=== PATIENT | male | born 1945 | race Caucasian/White ===

== ENCOUNTER 2016-11-08 07:31 | Outpatient (CLI) | payer OTHER ==
[~2016-11-08 07:31] MED LIST: ASPI-1063 PO; CARV25TA55 PO; CAT.1 PO; FURO-150 PO; IPRA4AER INH; LEVO500T20 PO; LIP10 PO; LISI40TA4 PO
[2016-11-08 08:51] LABS: BASOPHILS % (AUTO) 0.3 % (0.0-2.0); EOSINOPHILS # (AUTO) 0.3 K/uL (0.0-0.4); EOSINOPHILS % (AUTO) 3.1 % (0.0-4.0); HEMOGLOBIN 15.4 g/dL (14.0-18.0); LYMPHOCYTES % (AUTO) 22.6 % (20.5-51.5); MEAN CORPUSCULAR HEMOGLOBIN 28 pg (27-31); MEAN CORPUSCULAR HGB CONC 32 % (32-36); MEAN CORPUSCULAR VOLUME 89 fL (79.0-98.0); MONOCYTES # (AUTO) 0.7 K/uL (0.0-1.0); MONOCYTES % (AUTO) 7.4 % (1.7-9.3); NEUTROPHILS # (AUTO) 5.8 K/uL (1.8-7.7); NEUTROPHILS % (AUTO) 66.6 % (40.0-70.0); PLATELET COUNT (AUTO) 244 K/uL (130-430); RED BLOOD CELL COUNT(AUTO) 5.42 MIL/uL (4.2-6.2); WHITE BLOOD COUNT (AUTO) 8.8 K/uL (4.8-10.8)
[2016-11-08 09:07] LABS: ALBUMIN 4.2 g/dL (3.4-4.8); CALCIUM 9.6 mg/dL (8.4-11.0); CREATININE 0.97 mg/dL (0.55-1.30); FREE T4 (FREE THYROXINE) 0.7 ng/dL (0.6-1.6); POTASSIUM 3.8 mmol/L (3.5-5.1); THYROID STIMULATING HORMONE 0.67 uIu/mL (0.34-4.82); TOTAL BILIRUBIN 0.7 mg/dL (0.0-1.0)
[2016-11-09 10:09] LABS: PROSTATE SPECIFIC AG 1.5 ng/mL (0.0-4.0)
[2016-11-09 14:03] LABS: HEMOGLOBIN A1C 5.8 % (4.8-5.6)
== END 2016-11-08 18:52 | disposition home or self-care (01) ==
LOC: SLB 07:31
PROVIDERS: ATTEND Internal Medicine
DX: I10 Essential (primary) hypertension (principal); E78.5 Hyperlipidemia, unspecified; J44.9 Chronic obstructive pulmonary disease, unspecified; E66.9 Obesity, unspecified; E55.9 Vitamin D deficiency, unspecified; I50.9 Heart failure, unspecified; R33.9 Retention of urine, unspecified; R73.9 Hyperglycemia, unspecified
CPT/HCPCS: 36415; 80053; 80061; 82306; 82607; 83036; 83880; 84153; 84439; 84443-TC; 85025

== ENCOUNTER 2017-07-25 08:30 | Outpatient (CLI) | payer OTHER ==
[2017-07-25 09:20] LABS: BASOPHILS % (AUTO) 0.3 % (0.0-2.0); EOSINOPHILS # (AUTO) 0.2 K/uL (0.0-0.4); EOSINOPHILS % (AUTO) 2.1 % (0.0-4.0); HEMATOCRIT 47.3 % (36-54); HEMOGLOBIN 15.4 g/dL (14.0-18.0); LYMPHOCYTES # (AUTO) 2.4 K/uL (1.0-5.5); MEAN CORPUSCULAR HEMOGLOBIN 28 pg (27-31); MEAN CORPUSCULAR HGB CONC 33 % (32-36); MEAN CORPUSCULAR VOLUME 87 fL (79.0-98.0); MONOCYTES # (AUTO) 0.7 K/uL (0.0-1.0); MONOCYTES % (AUTO) 7.5 % (1.7-9.3); NEUTROPHILS # (AUTO) 5.4 K/uL (1.8-7.7); NEUTROPHILS % (AUTO) 63.1 % (40.0-70.0); PLATELET COUNT (AUTO) 262 K/uL (130-430); RED BLOOD CELL COUNT(AUTO) 5.42 MIL/uL (4.2-6.2); WHITE BLOOD COUNT (AUTO) 8.8 K/uL (4.8-10.8)
[2017-07-25 09:45] LABS: ALBUMIN 4.1 g/dL (3.4-4.8); CALCIUM 10.1 mg/dL (8.4-11.0); CREATININE 0.81 mg/dL (0.55-1.30); POTASSIUM 3.9 mmol/L (3.5-5.1); THYROID STIMULATING HORMONE 0.56 uIu/mL (0.34-4.82); TOTAL BILIRUBIN 0.7 mg/dL (0.0-1.0)
== END 2017-07-25 20:17 | disposition home or self-care (01) ==
LOC: SLB 08:30
PROVIDERS: ATTEND Internal Medicine
DX: I10 Essential (primary) hypertension (principal); E50.3 Vitamin A deficiency with corneal ulceration and xerosis; E78.5 Hyperlipidemia, unspecified; J44.9 Chronic obstructive pulmonary disease, unspecified; R73.9 Hyperglycemia, unspecified
CPT/HCPCS: 36415; 80053; 80061; 83036; 84443-TC; 85025

== ENCOUNTER 2018-02-13 08:20 | Outpatient (CLI) | payer OTHER ==
[~2018-02-13 08:20] MED LIST changes: -ASPI-1063 PO; +ASPI-1154 PO
[2018-02-13 08:59] LABS: BASOPHILS % (AUTO) 0.2 % (0.0-2.0); EOSINOPHILS # (AUTO) 0.2 K/uL (0.0-0.4); HEMATOCRIT 46.5 % (36-54); HEMOGLOBIN 15.6 g/dL (14.0-18.0); LYMPHOCYTES # (AUTO) 2.3 K/uL (1.0-5.5); LYMPHOCYTES % (AUTO) 27.7 % (20.5-51.5); MEAN CORPUSCULAR HEMOGLOBIN 30 pg (27-31); MEAN CORPUSCULAR HGB CONC 34 % (32-36); MEAN CORPUSCULAR VOLUME 89 fL (79.0-98.0); MONOCYTES # (AUTO) 0.5 K/uL (0.0-1.0); MONOCYTES % (AUTO) 6.6 % (1.7-9.3); NEUTROPHILS # (AUTO) 5.3 K/uL (1.8-7.7); NEUTROPHILS % (AUTO) 63.5 % (40.0-70.0); PLATELET COUNT (AUTO) 239 K/uL (130-430); RED BLOOD CELL COUNT(AUTO) 5.21 MIL/uL (4.2-6.2); RED CELL DISTRIBUTION WIDTH 13.3 % (9.0-15.0); WHITE BLOOD COUNT (AUTO) 8.3 K/uL (4.8-10.8)
[2018-02-13 09:27] LABS: CALCIUM 9.4 mg/dL (8.4-11.0); CREATININE 0.88 mg/dL (0.55-1.30); POTASSIUM 3.9 mmol/L (3.5-5.1); THYROID STIMULATING HORMONE 0.61 uIu/mL (0.34-4.82); TOTAL BILIRUBIN 0.6 mg/dL (0.0-1.0)
[2018-02-13 11:08] LABS: BILIRUBIN,URINE NEGATIVE (NEGATIVE); BLOOD, URINE NEGATIVE (NEGATIVE); CLARITY/URINE CLEAR (CLEAR); COLOR,URINE YELLOW (YELLOW); GLUCOSE,URINE NEGATIVE (NEGATIVE); KETONES,URINE 1+ (NEGATIVE); LEUKOCYTE ESTERASE ,URINE NEGATIVE (NEGATIVE); NITRITE, URINE NEGATIVE (NEGATIVE); PH,URINE 6.5 (5.0-8.0); PROTEIN URINE NEGATIVE (NEGATIVE); UROBILINOGEN,URINE 0.2 (0.2-1.0)
[2018-02-14 04:11] LABS: HEMOGLOBIN A1C 5.6 % (4.8-5.6)
[2018-02-14 08:07] LABS: PROSTATE SPECIFIC AG 1.9 ng/mL (0.0-4.0)
== END 2018-02-13 21:10 | disposition home or self-care (01) ==
LOC: SLB 08:20
PROVIDERS: ATTEND Internal Medicine
DX: I11.0 Hypertensive heart disease with heart failure (principal); I50.41 Acute combined systolic (congestive) and diastolic (congestive) heart failure; E78.5 Hyperlipidemia, unspecified; J44.9 Chronic obstructive pulmonary disease, unspecified; R73.9 Hyperglycemia, unspecified; Z79.82 Long term (current) use of aspirin; Z79.899 Other long term (current) drug therapy; N40.0 Benign prostatic hyperplasia without lower urinary tract symptoms
CPT/HCPCS: 36415; 80053; 80061; 81003; 82306; 83036; 84443-TC; 85025; G0103

== ENCOUNTER 2018-08-21 08:08 | Outpatient (CLI) | payer OTHER ==
[2018-08-21 09:20] LABS: BASOPHILS % (AUTO) 0.2 % (0.0-2.0); EOSINOPHILS # (AUTO) 0.2 K/uL (0.0-0.4); EOSINOPHILS % (AUTO) 2.6 % (0.0-4.0); HEMATOCRIT 47.8 % (36-54); HEMOGLOBIN 15.7 g/dL (14.0-18.0); MEAN CORPUSCULAR HEMOGLOBIN 29 pg (27-31); MEAN CORPUSCULAR HGB CONC 33 % (32-36); MEAN CORPUSCULAR VOLUME 87 fL (79.0-98.0); MONOCYTES # (AUTO) 0.6 K/uL (0.0-1.0); MONOCYTES % (AUTO) 7.4 % (1.7-9.3); NEUTROPHILS # (AUTO) 5.2 K/uL (1.8-7.7); NEUTROPHILS % (AUTO) 64.8 % (40.0-70.0); PLATELET COUNT (AUTO) 239 K/uL (130-430); RED BLOOD CELL COUNT(AUTO) 5.48 MIL/uL (4.2-6.2); RED CELL DISTRIBUTION WIDTH 12.8 % (9.0-15.0); WHITE BLOOD COUNT (AUTO) 8.1 K/uL (4.8-10.8)
[2018-08-21 09:39] LABS: ALBUMIN 3.6 g/dL (3.4-4.8); CALCIUM 8.8 mg/dL (8.4-11.0); CREATININE 0.84 mg/dL (0.55-1.30); POTASSIUM 4.1 mmol/L (3.5-5.1); THYROID STIMULATING HORMONE 0.52 uIu/mL (0.34-4.82); TOTAL BILIRUBIN 0.5 mg/dL (0.0-1.0)
[2018-08-21 10:47] LABS: BILIRUBIN,URINE NEGATIVE (NEGATIVE); BLOOD, URINE NEGATIVE (NEGATIVE); COLOR,URINE YELLOW (YELLOW); GLUCOSE,URINE NEGATIVE (NEGATIVE); KETONES,URINE NEGATIVE (NEGATIVE); LEUKOCYTE ESTERASE ,URINE NEGATIVE (NEGATIVE); NITRITE, URINE NEGATIVE (NEGATIVE); PH,URINE 5.5 (5.0-8.0); PROTEIN URINE NEGATIVE (NEGATIVE); UROBILINOGEN,URINE 0.2 (0.2-1.0)
[2018-08-21 10:50] LABS: CLARITY/URINE SLIGHTLY HAZY (CLEAR)
[2018-08-22 07:00] LABS: HEMOGLOBIN A1C 5.5 % (4.8-5.6)
[2018-08-22 14:03] LABS: PROSTATE SPECIFIC AG 1.3 ng/mL (0.0-4.0)
== END 2018-08-21 19:21 | disposition home or self-care (01) ==
LOC: SLB 08:08
PROVIDERS: ATTEND Internal Medicine
DX: Z12.5 Encounter for screening for malignant neoplasm of prostate (principal); I10 Essential (primary) hypertension; R73.9 Hyperglycemia, unspecified; Z79.899 Other long term (current) drug therapy
CPT/HCPCS: 36415; 80053; 80061; 81003; 82306; 82607; 83036; 84443; 85025; G0103; 84153

== ENCOUNTER 2019-04-16 08:25 | Outpatient (CLI) | payer OTHER ==
[~2019-04-16 08:25] MED LIST changes: -ASPI-1154 PO; +ASPI-1457 PO
[2019-04-16 09:15] LABS: ALANINE AMINOTRANSFERASE 23 U/L (12-78); ALBUMIN 3.8 g/dL (3.4-4.8); ANION GAP 9 (5-15); ASPARTATE AMINOTRANSFERASE 19 U/L (10-37); CHLORIDE 103 mmol/L (98-107); CHOLESTEROL 144 mg/dL (<200); CREATININE 0.91 mg/dL (0.55-1.30); GLUCOSE 101 mg/dL (70-99); HDL CHOLESTEROL 41 mg/dL (>45); LDL CHOLESTEROL 79 mg/dL (<100); POTASSIUM 3.9 mmol/L (3.5-5.1); SODIUM SERUM 137 mmol/L (136-145); TOTAL BILIRUBIN 0.6 mg/dL (0.0-1.0); TRIGLYCERIDES 154 mg/dL (30-150); UREA NITROGEN, BLOOD 19 mg/dL (8-21)
[2019-04-16 09:16] LABS: BASOPHILS % (AUTO) 0.4 % (0.0-2.0); EOSINOPHILS # (AUTO) 0.1 K/uL (0.0-0.4); EOSINOPHILS % (AUTO) 1.6 % (0.0-4.0); HEMATOCRIT 44.9 % (36-54); HEMOGLOBIN 15.2 g/dL (14.0-18.0); LYMPHOCYTES # (AUTO) 2.4 K/uL (1.0-5.5); LYMPHOCYTES % (AUTO) 26.4 % (20.5-51.5); MEAN CORPUSCULAR HEMOGLOBIN 30 pg (27-31); MEAN CORPUSCULAR HGB CONC 34 % (32-36); MEAN CORPUSCULAR VOLUME 88 fL (79.0-98.0); MONOCYTES # (AUTO) 0.7 K/uL (0.0-1.0); NEUTROPHILS # (AUTO) 5.8 K/uL (1.8-7.7); NEUTROPHILS % (AUTO) 63.6 % (40.0-70.0); PLATELET COUNT (AUTO) 241 K/uL (130-430); RED BLOOD CELL COUNT(AUTO) 5.08 MIL/uL (4.2-6.2); RED CELL DISTRIBUTION WIDTH 13.9 % (9.0-15.0); WHITE BLOOD COUNT (AUTO) 9.1 K/uL (4.8-10.8)
[2019-04-16 09:24] LABS: CALCIUM 9.4 mg/dL (8.4-11.0)
[2019-04-17 07:14] LABS: PROSTATE SPECIFIC AG 1.7 ng/mL (0.0-4.0)
[2019-04-17 14:50] LABS: HEMOGLOBIN A1C 5.7 % (4.8-5.6)
== END 2019-04-16 21:09 | disposition home or self-care (01) ==
LOC: SLB 08:25
PROVIDERS: ATTEND Internal Medicine
DX: E78.5 Hyperlipidemia, unspecified (principal); I10 Essential (primary) hypertension; R73.9 Hyperglycemia, unspecified; I50.32 Chronic diastolic (congestive) heart failure; N40.0 Benign prostatic hyperplasia without lower urinary tract symptoms
CPT/HCPCS: 36415; 80053; 80061; 83036; 84153; 85025

== ENCOUNTER 2019-10-27 12:16 | Inpatient (IN) | payer OTHER ==
[~2019-10-27] VITALS: Ht 182.9 cm; Wt 122.0 kg
[2019-10-27 12:16] VITALS: BP_SYST 161
--- NOTE | 2019-10-27 12:16 | NUR ---
BROUGHT BACK TO BED #7 AND TRIAGED. REPORT GIVEN TO MICHEAL
--- NOTE | 2019-10-27 12:18 | NUR ---
Note richardlela in EDM - 10/27/19 at 1245 by [email or web address] Pt brought by self , A&Ox4, pt presents to ER with tachicardis starting yesterday, mild diphoresis noted, pt denies chest pain or SOB , skin pink and warm, cap refill <3, VSS, respirations even and unlabored, afebrile, will continue to monitor.
--- NOTE | 2019-10-27 12:18 | NUR ---
Pt brought by self , A&Ox4,ambulatory, pt presents to ER with tachicardia starting yesterday, mild diaphoresis noted, pt denies chest pain or SOB , skin pink and warm, cap refill <3, VSS, respirations even and unlabored, afebrile, will continue to monitor.
--- NOTE | 2019-10-27 12:20 | NUR ---
# 22 gauge angiocath placed to R hand. Use of asceptic technique. Opsite placed over site. Blood return noted. Blood for lab drawn from site. Flushed with 10 cc of normal saline. No evidence of infiltration noted. Patient tolerated well. 1L NS bolus infusing.
--- NOTE | 2019-10-27 12:20 | NUR ---
Dr Lyon at bedside examining patient
[2019-10-27] MEDS ORDERED: NACL 0.9% 1,000 ML IV ONE (12:30)
[2019-10-27 12:47] LABS: BASOPHILS # (AUTO) 0.1 K/uL (0.0-0.2); BASOPHILS % (AUTO) 0.5 % (0.0-2.0); EOSINOPHILS # (AUTO) 0.1 K/uL (0.0-0.4); EOSINOPHILS % (AUTO) 1.5 % (0.0-4.0); HEMATOCRIT 44.4 % (36-54); HEMOGLOBIN 14.9 g/dL (14.0-18.0); LYMPHOCYTES # (AUTO) 2.9 K/uL (1.0-5.5); LYMPHOCYTES % (AUTO) 28.8 % (20.5-51.5); MEAN CORPUSCULAR HEMOGLOBIN 30 pg (27-31); MEAN CORPUSCULAR HGB CONC 34 % (32-36); MEAN CORPUSCULAR VOLUME 88 fL (79.0-98.0); MONOCYTES # (AUTO) 0.7 K/uL (0.0-1.0); MONOCYTES % (AUTO) 7.4 % (1.7-9.3); NEUTROPHILS # (AUTO) 6.3 K/uL (1.8-7.7); NEUTROPHILS % (AUTO) 61.8 % (40.0-70.0); PLATELET COUNT (AUTO) 224 K/uL (130-430); RED BLOOD CELL COUNT(AUTO) 5.03 MIL/uL (4.2-6.2); RED CELL DISTRIBUTION WIDTH 14.4 % (9.0-15.0); WHITE BLOOD COUNT (AUTO) 10.2 K/uL (4.8-10.8)
[2019-10-27 12:58] LABS: ANION GAP 10 (5-15); CALCIUM 8.5 mg/dL (8.4-11.0); CHLORIDE 106 mmol/L (98-107); CREATININE 1.18 mg/dL (0.55-1.30); GLUCOSE 149 mg/dL (70-99); POTASSIUM 4.2 mmol/L (3.5-5.1); SODIUM SERUM 142 mmol/L (136-145); UREA NITROGEN, BLOOD 25 mg/dL (8-21)
[2019-10-27 13:02] LABS: PROTHROMBIN TIME 9.9 SECS (9.5-12.5)
[2019-10-27 13:12] LABS: ALANINE AMINOTRANSFERASE 31 U/L (12-78); ALBUMIN 3.5 g/dL (3.4-4.8); ASPARTATE AMINOTRANSFERASE 20 U/L (10-37); THYROID STIMULATING HORMONE 0.86 uIu/mL (0.36-3.74); TOTAL BILIRUBIN 0.6 mg/dL (0.0-1.0)
--- NOTE | 2019-10-27 13:20 | NUR ---
Urine collected and sent to lab for UDS
[2019-10-27 13:33] LABS: BILIRUBIN,URINE NEGATIVE (NEGATIVE); BLOOD, URINE NEGATIVE (NEGATIVE); CLARITY/URINE CLEAR (CLEAR); COLOR,URINE YELLOW (YELLOW); GLUCOSE,URINE NEGATIVE (NEGATIVE); KETONES,URINE NEGATIVE (NEGATIVE); LEUKOCYTE ESTERASE ,URINE NEGATIVE (NEGATIVE); NITRITE, URINE NEGATIVE (NEGATIVE); PROTEIN URINE NEGATIVE (NEGATIVE); UROBILINOGEN,URINE 0.2 (0.2-1.0)
--- NOTE | 2019-10-27 13:35 | NUR ---
Repeat EKG completed as ordered, given to MD for interpretation
[2019-10-27] MEDS ORDERED: DILTIAZEM HCL 25 MG/5 ML VIAL IVP ONE (13:45)
--- NOTE | 2019-10-27 13:45 | NUR ---
Cardizem given IVP as ordered per MD. EKG strip printed for before, during and after medication administration.
[2019-10-27] MEDS ORDERED: HYDR-4038 PO (13:55)
--- NOTE | 2019-10-27 13:55 | NUR ---
Medication reconciliation completed with information provided by pt. Any prior medication reconciliation on file was reviewed and corrected.
--- NOTE | 2019-10-27 14:00 | NUR ---
Pt belongings list completed for possible admission.
--- NOTE | 2019-10-27 14:13 | NUR ---
Repeat EKG performed at bedside and given to MD for interpretation
--- NOTE | 2019-10-27 14:34 | NUR ---
called for a tele bed. Currently waiting for a bed assignment
[2019-10-27] MEDS ORDERED: METOPROLOL TARTRATE 25 MG TABLET PO ONE (14:45)
--- NOTE | 2019-10-27 14:50 | NUR ---
Patient will be admitted to care of Dr. Sharma. Admitted to Tele unit. Will go to room 107B. Belongings list completed. Complete and up to date summary report printed. SBAR report to be given at bedside with opportunity for questions. IV to R hand patent and SL
--- NOTE | 2019-10-27 14:52 | NUR ---
medicated the pt w/ Lopressor 50mg po per md order
--- NOTE | 2019-10-27 14:52 | NUR ---
Patient will be admitted to care of Dr. Sharma. Admitted to tele unit. Will go to room 107-b. Belongings list completed. Complete and up to date summary report printed. SBAR report to be given at bedside with opportunity for questions. iv is on the right hand patent and infusing well
--- NOTE | 2019-10-27 15:01 | NUR ---
ADMISSION NOTE Received patient from ER via jose, received report from ER/ RN. Patient admitted with diagnosis of new onset of atrial fibrillation. Patient oriented to hospital routine, call light, toileting and safety-patient verbalized understanding.
[2019-10-27 15:13] LABS: BARBITURATE, URINE NEGATIVE (NEG <=200); BENZODIAZEPINE, URINE NEGATIVE (NEG <=150); CANNABINOID, URINE NEGATIVE (NEG <=50); COCAINE, URINE NEGATIVE (NEG <=150); METHAMPHETAMINES SCREEN,URINE NEGATIVE (NEG <=500); OPIATE, URINE NEGATIVE (NEG <=100); PHENCYCLIDINE SCREEN,URINE NEGATIVE (NEG <=25); UR TRICYCLIC ANTIDEPRESSANTS NEGATIVE (NEG <=300); URINE AMPHETAMINE NEGATIVE (NEG <=500); URINE METHADONE NEGATIVE (NEG <=200); URINE OXYCODONE SCREEN NEGATIVE (NEG <=100); URINE PROPOXYPHENE SCREEN NEGATIVE (NEG <=300)
[2019-10-27 15:21] VITALS: BP_SYST 166
--- NOTE | 2019-10-27 15:30 | NUR ---
CONSULTATION PAGED/CALLED Reason for Consultation: new onset of atrial fibrillation Person Who was Notified: exchange Consulting Physician: Dr. Hdz/ Dr. Sanchez station cook Wood Barrel Reconditioner Specialty: needle felt making machine operator Ordering Physician:
[2019-10-27 16:35] VITALS: BP_SYST 151
--- NOTE | 2019-10-27 17:41 | NUR ---
ROUNDS/ DROPPED DINNER TRAY OFF PT AWAKE ALERT AND ORIENTED. NO ACUTE DISTRESS NOTED. ALL NEEDS MET. CALL LIGHT IN REACH. CONTINUE TO MONITOR.
--- NOTE | 2019-10-27 18:32 | NUR ---
CLOSING NOTES PT AWAKE, ALERT, AND ORIENTED. NONLABORED BREATHING NOTED ON ROOM AIR. PT DENIES PAIN AND SOB AT THIS TIME. IV LINE INTACT AND PATENT, NO SIGNS OF INFILTRATION NOTED. NO ACUTE DISTRESS NOTED. ALL NEEDS MET. CALL LIGHT IN REACH. BED LOCKED AND IN LOWEST POSITION. FALL AND ASPIRATION PRECAUTIONS IN PLACE. WILL ENDORSE TO NOC NURSE.
--- NOTE | 2019-10-27 19:45 | NUR ---
A/A/O X4.DENIES ANY DISCOMFORT @ THIS TIME.INSTRUCTED TO USE CALL LIGHT NEEDED;WITHIN REACH.
[2019-10-27 20:00] VITALS: BP_SYST 178
[2019-10-27] MEDS: CARVEDILOL 25 MG TABLET (COREG) PO SCH (20:36)
[2019-10-27] MEDS: APIXABAN 2.5 MG TABLET PO SCH (20:38)
[2019-10-27] MEDS ORDERED: AMIODARONE HCL 200 MG TABLET PO SCH (21:00)
[2019-10-27] MEDS ORDERED: METOPROLOL TARTRATE 25 MG TABLET PO SCH (21:00)
--- NOTE | 2019-10-27 21:00 | NUR ---
DUE MEDS ADM. TELE SHOWED A- FLUTTER RATE 95.
[2019-10-28] VITALS (7 sets, daily range): BP systolic 136–183
--- NOTE | 2019-10-28 | NUR ---
BP 155/118.DENIES CP.DENIES ANY DISCOMFORT.TELE SHOWED A-FLUTTER.
--- NOTE | 2019-10-28 03:00 | NUR ---
RESTING COMFORTABLY IN NO ACUTE DISTRESS.
--- NOTE | 2019-10-28 06:00 | NUR ---
LATEST BP 136/103.
[2019-10-28 06:31] LABS: BASOPHILS % (AUTO) 0.4 % (0.0-2.0); EOSINOPHILS # (AUTO) 0.1 K/uL (0.0-0.4); EOSINOPHILS % (AUTO) 1.3 % (0.0-4.0); HEMATOCRIT 44.1 % (36-54); HEMOGLOBIN 14.9 g/dL (14.0-18.0); LYMPHOCYTES # (AUTO) 2.6 K/uL (1.0-5.5); LYMPHOCYTES % (AUTO) 28.1 % (20.5-51.5); MEAN CORPUSCULAR HEMOGLOBIN 30 pg (27-31); MEAN CORPUSCULAR HGB CONC 34 % (32-36); MEAN CORPUSCULAR VOLUME 88 fL (79.0-98.0); MONOCYTES # (AUTO) 0.7 K/uL (0.0-1.0); MONOCYTES % (AUTO) 7.9 % (1.7-9.3); NEUTROPHILS # (AUTO) 5.8 K/uL (1.8-7.7); NEUTROPHILS % (AUTO) 62.3 % (40.0-70.0); PLATELET COUNT (AUTO) 224 K/uL (130-430); RED BLOOD CELL COUNT(AUTO) 5.04 MIL/uL (4.2-6.2); RED CELL DISTRIBUTION WIDTH 14.3 % (9.0-15.0); WHITE BLOOD COUNT (AUTO) 9.2 K/uL (4.8-10.8)
--- NOTE | 2019-10-28 06:45 | NUR ---
ENDORSED IN NO ACUTE DISTRESS.SAFETY MAINTAINED.
[2019-10-28 06:49] LABS: PROTHROMBIN TIME 10.4 SECS (9.5-12.5)
[2019-10-28 07:01] LABS: ANION GAP 10 (5-15); CALCIUM 8.3 mg/dL (8.4-11.0); CHLORIDE 105 mmol/L (98-107); FREE T4 (FREE THYROXINE) 1.2 ng/dl (0.8-1.5); GLUCOSE 112 mg/dL (70-99); SODIUM SERUM 141 mmol/L (136-145); THYROID STIMULATING HORMONE 1.01 uIu/mL (0.36-3.74); UREA NITROGEN, BLOOD 17 mg/dL (8-21)
--- NOTE | 2019-10-28 07:15 | NUR ---
OPENING NOTES PT AWAKE, ALERT, AND ORIENTED. HOB ELEVATED. NONLABORED BREATHING NOTED ON ROOM AIR, O2 AT 95%. PT DENIES PAIN AND SOB AT THIS TIME. IV LINE INTACT AND PATENT, NO SIGNS OF INFILTRATION NOTED. NO ACUTE DISTRESS NOTED. ALL NEEDS MET. CALL LIGHT IN REACH. FALL AND ASPIRATION PRECAUTIONS IN PLACE. CONTINUE TO MONITOR.
[2019-10-28 07:56] LABS: CHOLESTEROL 136 mg/dL (<200); HDL CHOLESTEROL 40 mg/dL (>45); LDL CHOLESTEROL 75 mg/dL (<100); TRIGLYCERIDES 106 mg/dL (30-150)
--- NOTE | 2019-10-28 08:15 | NUR ---
SEEN BY DR. BERNAL AT BEDSIDE. DR. BERNAL AWARE OF BP AND HEART RATE. RECEIVED ORDERS, VERIFIED, AND CARRIED OUT.
[2019-10-28] MEDS: LISINOPRIL 20 MG TABLET PO SCH (08:52)
[2019-10-28] MEDS: ATORVASTATIN 10 MG TABLET PO SCH (08:52)
[2019-10-28] MEDS: APIXABAN 2.5 MG TABLET PO SCH ×2 (08:56→20:30)
[2019-10-28] MEDS: CARVEDILOL 25 MG TABLET (COREG) PO SCH ×2 (08:57→20:28)
[2019-10-28] MEDS ORDERED: ASPIRIN 81 MG TAB.CHEW PO SCH (09:00)
[2019-10-28] MEDS: hydrALAZINE HCL 25 MG TABLET PO SCH ×2 (09:32→20:29)
--- NOTE | 2019-10-28 09:45 | NUR ---
ROUTINE MEDS ROUTINE MEDS ADMINISTERED ORDERED PER MD, EDUCATION GIVEN, TOLERATED WELL. NO ACUTE DISTRESS NOTED. ALL NEEDS MET. CALL LIGHT IN REACH. CONTINUE TO MONITOR.
--- NOTE | 2019-10-28 12:00 | NUR ---
ROUNDS PT SITTING UP IN BED. NO ACUTE DISTRESS NOTED. ALL NEEDS MET. CALL LIGHT IN REACH. CONTINUE TO MONITOR.
--- NOTE | 2019-10-28 12:45 | NUR ---
SPOKE TO GREEN PLUMBER REGARDING HIGH BLOOD PRESSURE AND LOW HEART RATE. DR. GABE SILVA.
--- NOTE | 2019-10-28 13:30 | NUR ---
SEEN BY DR. JACOBS AT BEDSIDE. AWARE OF PT BLOOD PRESSURE AND HEART RATE.
--- NOTE | 2019-10-28 13:56 | NUR ---
ROUNDS PATIENT WATCHING TV. NO ACUTE DISTRESS NOTED. PT DENIES PAIN AND SOB AT THIS TIME. ALL NEEDS MET. CALL LIGHT IN REACH. CONTINUE TO MONITOR.
[2019-10-28] MEDS: AMIODARONE HCL 200 MG TABLET PO SCH ×2 (14:18→22:25)
--- NOTE | 2019-10-28 14:19 | NUR ---
ROUTINE MEDS ROUTINE MEDS ADMINISTERED ORDERED PER MD, EDUCATION GIVEN, TOLERATED WELL. NO ACUTE DISTRESS NOTED. ALL NEEDS MET. CALL LIGHT IN REACH. CONTINUE TO MONITOR.
--- NOTE | 2019-10-28 16:00 | NUR ---
ROUNDS PT SITTING UP IN BED WATCHING TV. NO ACUTE DISTRESS NOTED. ALL NEEDS MET. CALL LIGHT IN REACH. CONTINUE TO MONITOR.
--- NOTE | 2019-10-28 18:37 | NUR ---
CLOSING NOTES PT AWAKE ALERT AND ORIENTED. SITTING UP IN BED WATCHING TELEVISION. NONLABORED BREATHING NOTED ON ROOM AIR. IV LINE INTACT AND PATENT, NO SIGNS OF INFILTRATION NOTED, SALINE LOCK. PT DENIES PAIN AND SOB AT THIS TIME. BED LOCKED AND IN LOWEST POSITION. NO ACUTE DISTRESS NOTED. ALL NEEDS MET. CALL LIGHT IN REACH. FALL AND ASPIRATION PRECAUTIONS IN PLACE. WILL ENDORSE TO NOC NURSE.
--- NOTE | 2019-10-28 19:25 | NUR ---
CHANGE OF SHIFT; pt. awake, alert, watching tv, no complaints, no chest pain. will assess later. call light within reach. pt. ambulates to the restroom.
--- NOTE | 2019-10-28 20:15 | NUR ---
NOTES: pt. on high fowlers position, watching tv. no chest pain nor shortness of breath. VS checked. IV lock on rt. hand. slight pitting edema on both feet noted. call light within reach.
--- NOTE | 2019-10-28 20:30 | NUR ---
NOTES: pt. due medications given. IV site checked, changed transparent dressing and flushed.
--- NOTE | 2019-10-28 22:30 | NUR ---
NOTES: pt. sleeping when checked, awakened for du em med, recheck VS. pt. wants to sleep for the night, informed him will not wake up for midnight VS if he is sleeping. Instructed to call fo any help, call light at bedside and verbalized understanding. remian on atrial flutter, controlled rate.
--- NOTE | 2019-10-29 00:49 | NUR ---
NOTES: pt. sleeping when checked. cardiac pattern unchanged.
--- NOTE | 2019-10-29 03:32 | NUR ---
NOTES: pt. remain sleeping, no distress. continue to monitor.
[2019-10-29 05:00] VITALS: BP_SYST 171
[2019-10-29] MEDS: AMIODARONE HCL 200 MG TABLET PO SCH ×3 (05:05→20:53)
--- NOTE | 2019-10-29 05:10 | NUR ---
NOTES: awakened for VS. supervisor dental laboratory here for am blood draw. due med given.
--- NOTE | 2019-10-29 05:43 | NUR ---
NOTES: EKG done at bedside. HR between 60's to 100's.
[2019-10-29 06:20] LABS: BASOPHILS % (AUTO) 0.2 % (0.0-2.0); EOSINOPHILS # (AUTO) 0.1 K/uL (0.0-0.4); EOSINOPHILS % (AUTO) 1.4 % (0.0-4.0); HEMATOCRIT 45.5 % (36-54); HEMOGLOBIN 15.2 g/dL (14.0-18.0); LYMPHOCYTES # (AUTO) 2.3 K/uL (1.0-5.5); LYMPHOCYTES % (AUTO) 23.1 % (20.5-51.5); MEAN CORPUSCULAR HEMOGLOBIN 29 pg (27-31); MEAN CORPUSCULAR HGB CONC 34 % (32-36); MEAN CORPUSCULAR VOLUME 88 fL (79.0-98.0); MONOCYTES # (AUTO) 0.9 K/uL (0.0-1.0); MONOCYTES % (AUTO) 8.9 % (1.7-9.3); NEUTROPHILS # (AUTO) 6.6 K/uL (1.8-7.7); NEUTROPHILS % (AUTO) 66.4 % (40.0-70.0); PLATELET COUNT (AUTO) 226 K/uL (130-430); RED BLOOD CELL COUNT(AUTO) 5.18 MIL/uL (4.2-6.2); RED CELL DISTRIBUTION WIDTH 14.4 % (9.0-15.0)
--- NOTE | 2019-10-29 06:27 | NUR ---
CLOSING NOTES; pt. awake, watching tv. HOB elevated, noted breathing slight heavy but denies any shortness of breath, occ. bouts of non productive cough. BP med given. pt. weighed in bed 270 lbs. for further care and assistance. still on afib/a flutter controlled rate. call light within reach.
[2019-10-29 06:50] LABS: ANION GAP 7 (5-15); CALCIUM 8.4 mg/dL (8.4-11.0); CHLORIDE 104 mmol/L (98-107); CREATININE 0.94 mg/dL (0.55-1.30); GLUCOSE 116 mg/dL (70-99); POTASSIUM 3.9 mmol/L (3.5-5.1); SODIUM SERUM 138 mmol/L (136-145); UREA NITROGEN, BLOOD 19 mg/dL (8-21)
--- NOTE | 2019-10-29 07:15 | NUR ---
NOTES: endorsed pt. to incoming shift for continuity of care. no complaints.
--- NOTE | 2019-10-29 07:55 | NUR ---
Opening Notes Patient is awake, alert and oriented x4. Patient denies any pain at this time. No resp distress at this time. Patient is ambulatory, gait steady. Noted with edema on bilateral feet, +1 pitting edema. Patient was instructed to elevate feet while in bed. Patient aware and agreed. IV noted on right hand, 22 gauge. Patient denies any abnormal bleeding at this time. Safety measures implemented. Call light within reach. Bed in lowest position, locked. Will continue to monitor.
[2019-10-29 08:00] VITALS: BP_SYST 146
[2019-10-29] MEDS: LISINOPRIL 20 MG TABLET PO SCH (08:56)
[2019-10-29] MEDS: CARVEDILOL 25 MG TABLET (COREG) PO SCH ×2 (08:56→20:54)
[2019-10-29] MEDS: ATORVASTATIN 10 MG TABLET PO SCH (08:56)
[2019-10-29] MEDS: APIXABAN 2.5 MG TABLET PO SCH ×2 (08:58→20:55)
[2019-10-29] MEDS: hydrALAZINE HCL 25 MG TABLET PO SCH ×2 (09:03→20:54)
[2019-10-29 12:00] VITALS: BP_SYST 144
--- NOTE | 2019-10-29 12:25 | NUR ---
Rounds Patient is awake, alert and oriented x4. Patient denies any pain at this time. No resp distress noted. Safety measures implemented. call light within reach. Bed in lowest position, locked. Will continue to monitor.
--- NOTE | 2019-10-29 16:05 | NUR ---
Rounds Patient is awake, alert and oriented x4. Patient is walking around room. No resp distress noted. Patient denies any pain at this time. Safety measures implemented. Call light within reach. Bed in lowest position, locked. Will continue to monitor.
[2019-10-29 16:17] VITALS: BP_SYST 166
--- NOTE | 2019-10-29 18:11 | NUR ---
Closing Notes Patient is laying in bed, resting. Alert and oriented x4. No resp distress noted at this time. Patient denies any pain at this time. Safety measures implemented. Call light within reach. Bed in lowest position, alarm on, locked. Will continue to monitor until oncoming nurse comes on shift.
--- NOTE | 2019-10-29 19:20 | NUR ---
CHANGE OF SHIFT; pt. awake, alert, watching tv when received. no complaints manifested. pt. verbalized that he is going home tomorrow. will assess alter. call light within reach.
--- NOTE | 2019-10-29 20:30 | NUR ---
NOTES: pt. up and ambulated to the restroom and inside the room. no chest pain nor shortness of breath. on personnel monitor and shows atrial flutter. IV lock on rt. hand.instructed to call for help and verbalized understanding.
[2019-10-29 20:45] VITALS: BP_SYST 183
--- NOTE | 2019-10-29 21:00 | NUR ---
NOTES: BP remains high, due BP meds given. pt. repositioned self for comfort.
--- NOTE | 2019-10-29 22:30 | NUR ---
NOTES; still awake, talking to his room mate. condition unchanged.
--- NOTE | 2019-10-30 00:30 | NUR ---
NOTES: BP still high even after BP meds. pt. saying it has always been elevated, asymptomatic, instructed to call for any signs of distress, verbalized understanding.
[2019-10-30 00:34] VITALS: BP_SYST 176
--- NOTE | 2019-10-30 02:00 | NUR ---
NOTES: pt. sleeping, condition unchanged.
--- NOTE | 2019-10-30 04:47 | NUR ---
NOTES: condition unchanged. remain sleeping.
[2019-10-30 05:45] VITALS: BP_SYST 186
[2019-10-30] MEDS: AMIODARONE HCL 200 MG TABLET PO SCH ×2 (05:56→16:25)
--- NOTE | 2019-10-30 06:00 | NUR ---
NOTES" pt. already awake, VS checked, due med given, BP remainns high , asymptomatic , pt. said always been high , noted to have white coat syndrome.
--- NOTE | 2019-10-30 06:40 | NUR ---
CLOSING NOTES; pt. resting and watching tv. for further care and assistance. remains on atrial flutter controlled rate. will endorse to day shift. call light within reach. IV lock on rt. hand.
--- NOTE | 2019-10-30 07:30 | NUR ---
received report from bernabe nurse. patient aaox 4. vitals signs stable. afebrile. bp 165/112. patient has bp medication. lungs bilaterally clear. abdomen soft and non distended. bed alarmed and locked. and in low position. has iv access on the rt hand #22. saline lock.patent/dry. call lights within reach. instructed to call for assistance.
[2019-10-30 08:05] VITALS: BP_SYST 162
[2019-10-30] MEDS: ATORVASTATIN 10 MG TABLET PO SCH (08:09)
[2019-10-30] MEDS: APIXABAN 2.5 MG TABLET PO SCH (08:09)
[2019-10-30] MEDS: hydrALAZINE HCL 25 MG TABLET PO SCH (08:10)
[2019-10-30] MEDS: CARVEDILOL 25 MG TABLET (COREG) PO SCH (08:10)
[2019-10-30] MEDS: LISINOPRIL 20 MG TABLET PO SCH (08:11)
--- NOTE | 2019-10-30 08:15 | NUR ---
dr duran visit the patient.
--- NOTE | 2019-10-30 08:35 | NUR ---
medication given at this time. verbalized had bm x 1 just now.
[2019-10-30] MEDS ORDERED: hydrALAZINE HCL 25 MG TABLET PO SCH (09:00)
[2019-10-30] MEDS ORDERED: FUROSEMIDE 20 MG TABLET PO SCH (09:00)
--- NOTE | 2019-10-30 10:00 | NUR ---
went to the bathroom x 2.
--- NOTE | 2019-10-30 11:51 | NUR ---
awaiting for the lunch tray. patient stable for now.
[2019-10-30 12:41] VITALS: BP_SYST 140
--- NOTE | 2019-10-30 16:00 | NUR ---
DR JACOBS CAME AND ORDER TO DISCHARGE PATIENT TODAY
[2019-10-30] MEDS ORDERED: APIX2.5T PO (16:10)
[2019-10-30] MEDS ORDERED: AMI200 PO (16:10)
[2019-10-30 16:43] VITALS: BP_SYST 140
[2019-10-30 16:57] VITALS: BP_SYST 137
--- NOTE | 2019-10-30 17:05 | NUR ---
DISCHARGE SUMMARY SIGNED AND EXPLAINED THE FOLLOW UP CARE PRIMARY CARE DOCTOR AND RAT EXTERMINATOR IN 2 WEEKS. INSTRUCTED THE AMIODARONE TABLET AND ELIQUID TABLET TO CONTINUITY WRITER AT [facility] IN [place]. IV ACCESS REMOVED AND [facility] I D BAND REMOVED. VERBALIZED WANTS TO WALK REFUSED TO HAVE WHEELCHAIR. DR JACOBS SAID CAN HAVE EXERCISE WITH WALKING IN 30 MINUTES. DAILY.
--- NOTE | 2019-11-05 11:46 | NUR ---
SS NOTES/DISCHARGE FOLLOW UP CALL: FOREMAN OR SUPERVISOR AND OPERATOR phoned patient at [phone] who states he is "doing very well". Pt was able to fill his prescription and does not have any questions on the instructions. Pt has a follow up appointment with his PCP in three weeks and pt does not have any questions or concerns regarding his instructions at this time. No further follow up call needed.
== END 2019-10-30 17:05 | disposition home or self-care (01) | DRG 308 ==
LOC: SED 12:16 → STU 15:24
PROVIDERS: ADMIT Internal Medicine; ATTEND Internal Medicine
DX: I48.92 Unspecified atrial flutter (principal); I50.43 Acute on chronic combined systolic (congestive) and diastolic (congestive) heart failure; I11.0 Hypertensive heart disease with heart failure; I48.91 Unspecified atrial fibrillation; E66.9 Obesity, unspecified; J44.9 Chronic obstructive pulmonary disease, unspecified; E78.5 Hyperlipidemia, unspecified; I43 Cardiomyopathy in diseases classified elsewhere; Z68.36 Body mass index [BMI] 36.0-36.9, adult; Z87.891 Personal history of nicotine dependence; Z79.899 Other long term (current) drug therapy; Z79.82 Long term (current) use of aspirin
CPT/HCPCS: 36415; 71045; 80048; 80053; 80061; 80307; 81003; 82306; 82607; 83605; 83735-TC; 83880; 84439; 84443-TC; 84484; 85025; 85379; 85610-TC; 85730-TC; 87040-TC; 93005; 93306; 96361; 96374; 99285; G0378; J3490

== ENCOUNTER 2020-05-19 08:07 | Outpatient (CLI) | payer OTHER ==
[~2020-05-19 08:07] MED LIST changes: +AMI200 PO; +APIX2.5T PO; -ASPI-1457 PO; -CAT.1 PO; -FURO-150 PO; +HYDR-4038 PO; -IPRA4AER INH; -LEVO500T20 PO
[2020-05-19 08:39] LABS: BASOPHILS % (AUTO) 0.4 % (0.0-2.0); EOSINOPHILS # (AUTO) 0.2 K/uL (0.0-0.4); EOSINOPHILS % (AUTO) 1.8 % (0.0-4.0); HEMATOCRIT 47.6 % (36-54); LYMPHOCYTES # (AUTO) 2.6 K/uL (1.0-5.5); LYMPHOCYTES % (AUTO) 25.6 % (20.5-51.5); MEAN CORPUSCULAR HEMOGLOBIN 30 pg (27-31); MEAN CORPUSCULAR HGB CONC 34 % (32-36); MEAN CORPUSCULAR VOLUME 90 fL (79.0-98.0); MONOCYTES # (AUTO) 0.8 K/uL (0.0-1.0); MONOCYTES % (AUTO) 8.1 % (1.7-9.3); NEUTROPHILS # (AUTO) 6.5 K/uL (1.8-7.7); NEUTROPHILS % (AUTO) 64.1 % (40.0-70.0); PLATELET COUNT (AUTO) 223 K/uL (130-430); RED CELL DISTRIBUTION WIDTH 14.5 % (9.0-15.0); WHITE BLOOD COUNT (AUTO) 10.2 K/uL (4.8-10.8)
[2020-05-19 09:13] LABS: ALANINE AMINOTRANSFERASE 26 U/L (12-78); ALBUMIN 3.7 g/dL (3.4-4.8); ANION GAP 9 (5-15); ASPARTATE AMINOTRANSFERASE 13 U/L (10-37); CALCIUM 9.1 mg/dL (8.4-11.0); CHLORIDE 104 mmol/L (98-107); CHOLESTEROL 159 mg/dL (<200); CREATININE 1.02 mg/dL (0.55-1.30); GLUCOSE 104 mg/dL (70-99); HDL CHOLESTEROL 51 mg/dL (>45); LDL CHOLESTEROL 91 mg/dL (<100); POTASSIUM 3.8 mmol/L (3.5-5.1); SODIUM SERUM 139 mmol/L (136-145); THYROID STIMULATING HORMONE 0.74 uIu/mL (0.34-4.82); TOTAL BILIRUBIN 0.9 mg/dL (0.0-1.0); TRIGLYCERIDES 120 mg/dL (30-150); UREA NITROGEN, BLOOD 24 mg/dL (8-21)
== END 2020-05-19 20:46 | disposition home or self-care (01) ==
LOC: SLB 08:07
PROVIDERS: ATTEND Internal Medicine
DX: I11.0 Hypertensive heart disease with heart failure (principal); I50.30 Unspecified diastolic (congestive) heart failure; I48.0 Paroxysmal atrial fibrillation; E78.5 Hyperlipidemia, unspecified; R73.9 Hyperglycemia, unspecified; R39.15 Urgency of urination; Z12.5 Encounter for screening for malignant neoplasm of prostate
CPT/HCPCS: 36415; 80053; 80061; 83036; 83880; 84443; 85025; G0103; 84153

== ENCOUNTER 2020-11-16 08:01 | Outpatient (CLI) | payer OTHER ==
[~2020-11-16 08:01] MED LIST changes: -AMI200 PO; +AMIO200T66 PO; +LISI40TA13 PO; -LISI40TA4 PO
[2020-11-16 08:27] LABS: BASOPHILS # (AUTO) 0.1 K/uL (0.0-0.2); BASOPHILS % (AUTO) 0.7 % (0.0-2.0); EOSINOPHILS # (AUTO) 0.1 K/uL (0.0-0.4); EOSINOPHILS % (AUTO) 0.8 % (0.0-4.0); HEMATOCRIT 48.1 % (36-54); HEMOGLOBIN 15.9 g/dL (14.0-18.0); LYMPHOCYTES # (AUTO) 2.3 K/uL (1.0-5.5); LYMPHOCYTES % (AUTO) 22.2 % (20.5-51.5); MEAN CORPUSCULAR HEMOGLOBIN 30 pg (27-31); MEAN CORPUSCULAR HGB CONC 33 % (32-36); MEAN CORPUSCULAR VOLUME 92 fL (79.0-98.0); MONOCYTES # (AUTO) 0.9 K/uL (0.0-1.0); MONOCYTES % (AUTO) 8.6 % (1.7-9.3); NEUTROPHILS % (AUTO) 67.7 % (40.0-70.0); PLATELET COUNT (AUTO) 223 K/uL (130-430); RED BLOOD CELL COUNT(AUTO) 5.25 MIL/uL (4.2-6.2); RED CELL DISTRIBUTION WIDTH 14.2 % (9.0-15.0); WHITE BLOOD COUNT (AUTO) 10.3 K/uL (4.8-10.8)
[2020-11-16 08:51] LABS: ALANINE AMINOTRANSFERASE 32 U/L (12-78); ALBUMIN 3.9 g/dL (3.4-4.8); ANION GAP 9 (5-15); ASPARTATE AMINOTRANSFERASE 20 U/L (10-37); CHLORIDE 102 mmol/L (98-107); CHOLESTEROL 171 mg/dL (<200); CREATININE 1.09 mg/dL (0.55-1.30); GLUCOSE 106 mg/dL (70-99); HDL CHOLESTEROL 61 mg/dL (>45); LDL CHOLESTEROL 97 mg/dL (<100); POTASSIUM 3.9 mmol/L (3.5-5.1); SODIUM SERUM 138 mmol/L (136-145); THYROID STIMULATING HORMONE 0.75 uIu/mL (0.34-4.82); TRIGLYCERIDES 138 mg/dL (30-150); UREA NITROGEN, BLOOD 24 mg/dL (8-21)
== END 2020-11-16 20:43 | disposition home or self-care (01) ==
LOC: SLB 08:01
PROVIDERS: ATTEND Internal Medicine
DX: I11.0 Hypertensive heart disease with heart failure (principal); I50.9 Heart failure, unspecified; E78.5 Hyperlipidemia, unspecified
CPT/HCPCS: 36415; 80053; 80061; 83880; 84443; 85025

== ENCOUNTER 2021-07-20 07:44 | Outpatient (CLI) | payer OTHER ==
[2021-07-20 09:46] LABS: BASOPHILS % (AUTO) 0.5 % (0.0-2.0); EOSINOPHILS # (AUTO) 0.1 K/uL (0.0-0.4); EOSINOPHILS % (AUTO) 1.1 % (0.0-4.0); HEMATOCRIT 49.1 % (36-54); HEMOGLOBIN 16.2 g/dL (14.0-18.0); LYMPHOCYTES # (AUTO) 2.1 K/uL (1.0-5.5); LYMPHOCYTES % (AUTO) 22.9 % (20.5-51.5); MEAN CORPUSCULAR HEMOGLOBIN 30 pg (27-31); MEAN CORPUSCULAR HGB CONC 33 % (32-36); MEAN CORPUSCULAR VOLUME 90 fL (79.0-98.0); MONOCYTES # (AUTO) 0.7 K/uL (0.0-1.0); NEUTROPHILS # (AUTO) 6.1 K/uL (1.8-7.7); NEUTROPHILS % (AUTO) 67.5 % (40.0-70.0); PLATELET COUNT (AUTO) 208 K/uL (130-430); RED BLOOD CELL COUNT(AUTO) 5.43 MIL/uL (4.2-6.2); RED CELL DISTRIBUTION WIDTH 13.8 % (9.0-15.0)
[2021-07-20 10:11] LABS: ALANINE AMINOTRANSFERASE 32 U/L (12-78); ALBUMIN 3.8 g/dL (3.4-4.8); ANION GAP 10 (5-15); ASPARTATE AMINOTRANSFERASE 19 U/L (10-37); CALCIUM 8.9 mg/dL (8.4-11.0); CHLORIDE 105 mmol/L (98-107); CREATININE 0.98 mg/dL (0.55-1.30); GLUCOSE 104 mg/dL (70-99); POTASSIUM 3.9 mmol/L (3.5-5.1); SODIUM SERUM 142 mmol/L (136-145); THYROID STIMULATING HORMONE 0.67 uIu/mL (0.36-3.74); TOTAL BILIRUBIN 0.8 mg/dL (0.0-1.0); UREA NITROGEN, BLOOD 21 mg/dL (8-21)
[2021-07-20 10:42] LABS: CHOLESTEROL 163 mg/dL (<200); TRIGLYCERIDES 111 mg/dL (30-150)
[2021-07-20 10:43] LABS: HDL CHOLESTEROL 52 mg/dL (>45); LDL CHOLESTEROL 88 mg/dL (<100)
[2021-07-21 04:06] LABS: HEMOGLOBIN A1C 5.5 % (4.8-5.6)
[2021-07-21 07:07] LABS: PROSTATE SPECIFIC AG 1.9 ng/mL (0.0-4.0)
== END 2021-07-20 20:13 | disposition home or self-care (01) ==
LOC: SLB 07:44
PROVIDERS: ATTEND Internal Medicine
DX: I11.0 Hypertensive heart disease with heart failure (principal); I50.9 Heart failure, unspecified; E78.5 Hyperlipidemia, unspecified; E66.9 Obesity, unspecified; R73.9 Hyperglycemia, unspecified; E56.9 Vitamin deficiency, unspecified; N40.1 Benign prostatic hyperplasia with lower urinary tract symptoms; Z79.899 Other long term (current) drug therapy
CPT/HCPCS: 36415; 80053; 80061; 82306; 82607; 83036; 83880; 84153; 84443; 85025

== ENCOUNTER 2021-11-12 19:56 | Inpatient (IN) | payer OTHER ==
[~2021-11-12] VITALS: Ht 185.4 cm; Wt 115.4 kg
[2021-11-12 20:10] VITALS: BP_SYST 117
[2021-11-12 22:17] LABS: HEMOGLOBIN 15.5 g/dL (14.0-18.0); MEAN CORPUSCULAR HEMOGLOBIN 30 pg (27-31); MEAN CORPUSCULAR HGB CONC 34 % (32-36); WHITE BLOOD COUNT (AUTO) 11.8 K/uL (4.8-10.8)
[2021-11-12 22:21] LABS: BASOPHILS % (AUTO) 0.2 % (0.0-2.0); EOSINOPHILS # (AUTO) 0.1 K/uL (0.0-0.4); HEMATOCRIT 46.1 % (36-54); LYMPHOCYTES # (AUTO) 2.1 K/uL (1.0-5.5); LYMPHOCYTES % (AUTO) 18.2 % (20.5-51.5); MEAN CORPUSCULAR VOLUME 89 fL (79.0-98.0); MONOCYTES # (AUTO) 1.1 K/uL (0.0-1.0); MONOCYTES % (AUTO) 9.1 % (1.7-9.3); NEUTROPHILS # (AUTO) 8.4 K/uL (1.8-7.7); NEUTROPHILS % (AUTO) 71.5 % (40.0-70.0); PLATELET COUNT (AUTO) 200 K/uL (130-430); RED BLOOD CELL COUNT(AUTO) 5.19 MIL/uL (4.2-6.2); RED CELL DISTRIBUTION WIDTH 14.6 % (9.0-15.0)
[2021-11-12 22:25] LABS: ANION GAP 9 (5-15); CALCIUM 8.8 mg/dL (8.4-11.0); CHLORIDE 106 mmol/L (98-107); CREATININE 1.25 mg/dL (0.55-1.30); GLUCOSE 117 mg/dL (70-99); POTASSIUM 4.1 mmol/L (3.5-5.1); SODIUM SERUM 141 mmol/L (136-145); UREA NITROGEN, BLOOD 24 mg/dL (8-21)
[2021-11-12 22:28] LABS: INR 1.1 (0.80-1.20); PROTHROMBIN TIME 10.7 SECS (9.5-12.5)
[2021-11-12 22:43] LABS: ALANINE AMINOTRANSFERASE 23 U/L (12-78); ALBUMIN 3.6 g/dL (3.4-4.8); ASPARTATE AMINOTRANSFERASE 16 U/L (10-37); TOTAL BILIRUBIN 0.8 mg/dL (0.0-1.0)
[2021-11-12 22:45] LABS: LIPASE 115 U/L (73-393)
[2021-11-13] MEDS ORDERED: cloNIDine HCL 0.1 MG TABLET PO ONE (00:15)
[2021-11-13] MEDS ORDERED: PANTOPRAZOLE SODIUM 40 MG/VIAL (PROTONIX) ONE (02:07)
[2021-11-13] MEDS ORDERED: PANTOPRAZOLE SODIUM 40 MG/VIAL (PROTONIX) IVP ONE ×2 (02:30)
[2021-11-13] MEDS ORDERED: AMIO200T66 PO (03:46)
[2021-11-13 06:10] VITALS: BP_SYST 195
[2021-11-13 08:00] VITALS: BP_SYST 154
[2021-11-13] MEDS ORDERED: dilTIAZem HCL IVP 5 MG/ML VIAL IVP ONE (08:30)
[2021-11-13 08:32] LABS: ANION GAP 10 (5-15); CALCIUM 8.1 mg/dL (8.4-11.0); CHLORIDE 105 mmol/L (98-107); CREATININE 1.12 mg/dL (0.55-1.30); GLUCOSE 108 mg/dL (70-99); SODIUM SERUM 141 mmol/L (136-145); UREA NITROGEN, BLOOD 22 mg/dL (8-21)
[2021-11-13 08:38] LABS: BASOPHILS % (AUTO) 0.2 % (0.0-2.0); EOSINOPHILS # (AUTO) 0.1 K/uL (0.0-0.4); EOSINOPHILS % (AUTO) 0.8 % (0.0-4.0); HEMATOCRIT 44.5 % (36-54); HEMOGLOBIN 14.8 g/dL (14.0-18.0); LYMPHOCYTES # (AUTO) 1.8 K/uL (1.0-5.5); LYMPHOCYTES % (AUTO) 22.1 % (20.5-51.5); MEAN CORPUSCULAR HEMOGLOBIN 30 pg (27-31); MEAN CORPUSCULAR HGB CONC 33 % (32-36); MEAN CORPUSCULAR VOLUME 89 fL (79.0-98.0); MONOCYTES # (AUTO) 0.7 K/uL (0.0-1.0); MONOCYTES % (AUTO) 8.2 % (1.7-9.3); NEUTROPHILS # (AUTO) 5.5 K/uL (1.8-7.7); NEUTROPHILS % (AUTO) 68.7 % (40.0-70.0); PLATELET COUNT (AUTO) 194 K/uL (130-430); RED BLOOD CELL COUNT(AUTO) 5.01 MIL/uL (4.2-6.2); RED CELL DISTRIBUTION WIDTH 14.5 % (9.0-15.0); WHITE BLOOD COUNT (AUTO) 7.9 K/uL (4.8-10.8)
[2021-11-13] MEDS ORDERED: AMIODARONE HCL 200 MG TABLET PO SCH (09:00)
[2021-11-13] MEDS ORDERED: ZOLPIDEM TARTRATE 5 MG TABLET PO PRN (09:45)
[2021-11-13] MEDS ORDERED: dilTIAZem HCL IVP 5 MG/ML VIAL IVP PRN (09:45)
[2021-11-13] MEDS ORDERED: ONDANSETRON HCL 4 MG/2 ML VIAL IVP PRN (09:45)
[2021-11-13] MEDS ORDERED: ACETAMINOPHEN 325 MG TABLET PO PRN (09:45)
[2021-11-13] MEDS: PANTOPRAZOLE SODIUM 40 MG/VIAL (PROTONIX) IVP SCH ×2 (09:48→21:53)
[2021-11-13] MEDS: hydrALAZINE HCL 25 MG TABLET PO SCH ×2 (09:48→21:54)
[2021-11-13] MEDS: ATORVASTATIN 10 MG TABLET PO SCH (09:49)
[2021-11-13] MEDS: lisinopriL 20 MG TABLET PO SCH (09:49)
[2021-11-13] MEDS: CARVEDILOL 25 MG TABLET (COREG) PO SCH ×2 (09:50→21:55)
[2021-11-13] MEDS: NACL 0.9% 1,000 ML IV SCH ×2 (09:53→18:48)
[2021-11-13 12:00] VITALS: BP_SYST 148
[2021-11-13 19:27] LABS: BILIRUBIN,URINE NEGATIVE (NEGATIVE); BLOOD, URINE NEGATIVE (NEGATIVE); CLARITY/URINE CLEAR (CLEAR); COLOR,URINE YELLOW (YELLOW); GLUCOSE,URINE NEGATIVE (NEGATIVE); KETONES,URINE TRACE (NEGATIVE); LEUKOCYTE ESTERASE ,URINE NEGATIVE (NEGATIVE); NITRITE, URINE NEGATIVE (NEGATIVE); PROTEIN URINE NEGATIVE (NEGATIVE); UROBILINOGEN,URINE 0.2 (0.2-1.0)
[2021-11-13] MEDS: AMIODARONE HCL 200 MG TABLET PO SCH (21:54)
[2021-11-13 22:40] VITALS: BP_SYST 160
[2021-11-14 00:20] VITALS: BP_SYST 160
[2021-11-14] MEDS: NACL 0.9% 1,000 ML IV SCH (06:08)
[2021-11-14 06:42] VITALS: BP_SYST 155
[2021-11-14 06:57] LABS: BASOPHILS % (AUTO) 0.3 % (0.0-2.0); EOSINOPHILS # (AUTO) 0.1 K/uL (0.0-0.4); EOSINOPHILS % (AUTO) 1.3 % (0.0-4.0); HEMATOCRIT 41.2 % (36-54); HEMOGLOBIN 13.7 g/dL (14.0-18.0); LYMPHOCYTES # (AUTO) 1.4 K/uL (1.0-5.5); LYMPHOCYTES % (AUTO) 18.4 % (20.5-51.5); MEAN CORPUSCULAR HEMOGLOBIN 30 pg (27-31); MEAN CORPUSCULAR HGB CONC 33 % (32-36); MEAN CORPUSCULAR VOLUME 89 fL (79.0-98.0); MONOCYTES # (AUTO) 0.7 K/uL (0.0-1.0); MONOCYTES % (AUTO) 9.2 % (1.7-9.3); NEUTROPHILS # (AUTO) 5.3 K/uL (1.8-7.7); NEUTROPHILS % (AUTO) 70.8 % (40.0-70.0); PLATELET COUNT (AUTO) 178 K/uL (130-430); RED BLOOD CELL COUNT(AUTO) 4.63 MIL/uL (4.2-6.2); RED CELL DISTRIBUTION WIDTH 14.8 % (9.0-15.0); WHITE BLOOD COUNT (AUTO) 7.5 K/uL (4.8-10.8)
[2021-11-14 07:17] LABS: INR 1.9 (0.80-1.20); PROTHROMBIN TIME 18.9 SECS (9.5-12.5)
[2021-11-14 07:30] LABS: ALANINE AMINOTRANSFERASE 20 U/L (12-78); ALBUMIN 3.1 g/dL (3.4-4.8); ANION GAP 8 (5-15); ASPARTATE AMINOTRANSFERASE 17 U/L (10-37); CALCIUM 7.9 mg/dL (8.4-11.0); CHLORIDE 105 mmol/L (98-107); CREATININE 1.09 mg/dL (0.55-1.30); FREE T4 (FREE THYROXINE) 1.5 ng/dl (0.8-1.5); GLUCOSE 96 mg/dL (70-99); LIPASE 98 U/L (73-393); POTASSIUM 3.4 mmol/L (3.5-5.1); SODIUM SERUM 140 mmol/L (136-145); THYROID STIMULATING HORMONE 0.87 uIu/mL (0.36-3.74); UREA NITROGEN, BLOOD 17 mg/dL (8-21)
[2021-11-14 08:00] VITALS: BP_SYST 161
[2021-11-14 08:23] LABS: CHOLESTEROL 138 mg/dL (<200); HDL CHOLESTEROL 46 mg/dL (>45); LDL CHOLESTEROL 75 mg/dL (<100); TRIGLYCERIDES 89 mg/dL (30-150)
[2021-11-14] MEDS: lisinopriL 20 MG TABLET PO SCH (09:01)
[2021-11-14] MEDS: PANTOPRAZOLE SODIUM 40 MG/VIAL (PROTONIX) IVP SCH ×2 (09:01→20:45)
[2021-11-14] MEDS: AMIODARONE HCL 200 MG TABLET PO SCH ×2 (09:02→20:49)
[2021-11-14] MEDS: ATORVASTATIN 10 MG TABLET PO SCH (09:03)
[2021-11-14] MEDS: hydrALAZINE HCL 25 MG TABLET PO SCH ×2 (09:03→20:47)
[2021-11-14] MEDS: CARVEDILOL 25 MG TABLET (COREG) PO SCH ×2 (09:04→20:51)
[2021-11-14 12:00] VITALS: BP_SYST 145
[2021-11-14] MEDS ORDERED: POTASSIUM CHLORIDE 20 MEQ TAB.PRT.SR PO ONE (15:15)
[2021-11-14 16:00] VITALS: BP_SYST 132
[2021-11-14] MEDS ORDERED: BISACODYL 5 MG TABLET.DR (DULCOLAX) PO ONE (16:45)
[2021-11-14] MEDS ORDERED: GOLYTELY / COLYTE SOLUTION 4 LITERS PO ONE (16:45)
[2021-11-14 20:30] VITALS: BP_SYST 165
[2021-11-15] VITALS: BP_SYST 151
[2021-11-15 04:20] VITALS: BP_SYST 160
[2021-11-15 06:24] LABS: BASOPHILS % (AUTO) 0.2 % (0.0-2.0); EOSINOPHILS # (AUTO) 0.1 K/uL (0.0-0.4); HEMATOCRIT 39.3 % (36-54); HEMOGLOBIN 13.2 g/dL (14.0-18.0); LYMPHOCYTES # (AUTO) 1.5 K/uL (1.0-5.5); LYMPHOCYTES % (AUTO) 19.6 % (20.5-51.5); MEAN CORPUSCULAR HEMOGLOBIN 30 pg (27-31); MEAN CORPUSCULAR HGB CONC 34 % (32-36); MEAN CORPUSCULAR VOLUME 88 fL (79.0-98.0); MONOCYTES # (AUTO) 0.8 K/uL (0.0-1.0); MONOCYTES % (AUTO) 10.2 % (1.7-9.3); NEUTROPHILS # (AUTO) 5.4 K/uL (1.8-7.7); PLATELET COUNT (AUTO) 179 K/uL (130-430); RED BLOOD CELL COUNT(AUTO) 4.47 MIL/uL (4.2-6.2); RED CELL DISTRIBUTION WIDTH 14.7 % (9.0-15.0); WHITE BLOOD COUNT (AUTO) 7.8 K/uL (4.8-10.8)
[2021-11-15 06:59] LABS: ANION GAP 8 (5-15); CALCIUM 7.9 mg/dL (8.4-11.0); CHLORIDE 107 mmol/L (98-107); CREATININE 1.08 mg/dL (0.55-1.30); GLUCOSE 95 mg/dL (70-99); POTASSIUM 3.4 mmol/L (3.5-5.1); SODIUM SERUM 142 mmol/L (136-145); UREA NITROGEN, BLOOD 13 mg/dL (8-21)
[2021-11-15 08:51] VITALS: BP_SYST 165
[2021-11-15] MEDS: ATORVASTATIN 10 MG TABLET PO SCH (09:08)
[2021-11-15] MEDS: hydrALAZINE HCL 25 MG TABLET PO SCH ×2 (09:09→20:48)
[2021-11-15] MEDS: lisinopriL 20 MG TABLET PO SCH (09:10)
[2021-11-15] MEDS: PANTOPRAZOLE SODIUM 40 MG/VIAL (PROTONIX) IVP SCH ×2 (09:10→20:44)
[2021-11-15] MEDS: CARVEDILOL 25 MG TABLET (COREG) PO SCH ×2 (09:11→20:47)
[2021-11-15] MEDS: AMIODARONE HCL 200 MG TABLET PO SCH ×2 (09:27→20:48)
[2021-11-15 12:00] VITALS: BP_SYST 159
[2021-11-15] MEDS ORDERED: POTASSIUM CHLORIDE 20 MEQ TAB.PRT.SR PO ONE (14:00)
[2021-11-15 16:00] VITALS: BP_SYST 154
[2021-11-15] MEDS: MIDAZOLAM HCL 5 MG/5 ML VIAL ONE ×2 (16:02→16:05)
[2021-11-15] MEDS: fentaNYL CITRATE/PF 100 MCG/2 ML AMP ONE ×2 (16:02→16:05)
[2021-11-15] MEDS ORDERED: AMIO200T66 PO (18:02)
[2021-11-15 20:00] VITALS: BP_SYST 186
[2021-11-15] MEDS: POTASSIUM CHLORIDE 20 MEQ TAB.PRT.SR PO SCH (20:45)
[2021-11-16 02:00] VITALS: BP_SYST 160
[2021-11-16 02:10] LABS: INR 1.1 (0.80-1.20); PROTHROMBIN TIME 11.2 SECS (9.5-12.5)
[2021-11-16 08:00] VITALS: BP_SYST 162
[2021-11-16] MEDS: PANTOPRAZOLE SODIUM 40 MG/VIAL (PROTONIX) IVP SCH (08:14)
[2021-11-16] MEDS: ATORVASTATIN 10 MG TABLET PO SCH (08:14)
[2021-11-16] MEDS: hydrALAZINE HCL 25 MG TABLET PO SCH (08:15)
[2021-11-16] MEDS: POTASSIUM CHLORIDE 20 MEQ TAB.PRT.SR PO SCH (08:16)
[2021-11-16] MEDS: CARVEDILOL 25 MG TABLET (COREG) PO SCH (08:16)
[2021-11-16] MEDS: lisinopriL 20 MG TABLET PO SCH (08:16)
[2021-11-16] MEDS: AMIODARONE HCL 200 MG TABLET PO SCH (08:17)
[2021-11-16 11:39] VITALS: BP_SYST 150
[2021-11-16 12:02] VITALS: BP_SYST 150
[2021-11-16] MEDS ORDERED: AMIODARONE HCL 200 MG TABLET PO SCH (21:00)
== END 2021-11-16 14:20 | disposition home or self-care (01) | DRG 378 ==
LOC: SED 19:56 → STU 11-13 02:24
PROVIDERS: ADMIT Internal Medicine; ATTEND Internal Medicine
PROC: 0DB78ZX Excision of Stomach, Pylorus, Via Natural or Artificial Opening Endoscopic, Diagnostic (ICD-10-PCS; principal; 2021-11-15 08:00)
PROC: 0DBN8ZZ Excision of Sigmoid Colon, Via Natural or Artificial Opening Endoscopic (ICD-10-PCS; 2021-11-15 08:00)
DX: K57.31 Diverticulosis of large intestine without perforation or abscess with bleeding (principal); I50.42 Chronic combined systolic (congestive) and diastolic (congestive) heart failure; I42.9 Cardiomyopathy, unspecified; I48.92 Unspecified atrial flutter; D62 Acute posthemorrhagic anemia; E78.5 Hyperlipidemia, unspecified; Z20.822 Contact with and (suspected) exposure to COVID-19; I48.0 Paroxysmal atrial fibrillation; Z60.2 Problems related to living alone; E66.9 Obesity, unspecified; I11.0 Hypertensive heart disease with heart failure; K29.70 Gastritis, unspecified, without bleeding; K63.5 Polyp of colon; K64.8 Other hemorrhoids; Z79.01 Long term (current) use of anticoagulants; Z79.899 Other long term (current) drug therapy; Z68.33 Body mass index [BMI] 33.0-33.9, adult
CPT/HCPCS: 36415; 43239; 45381; 71045; 80048; 80053; 80061; 81003; 83690; 83735; 83880; 84439; 84443; 84484; 85025; 85610-TC; 85730-TC; 87081; 88305; 88312; 88313; 93005; 93306; 96374; 96375; 99285; C9113; G0378; J2250; J3010; J3490

== ENCOUNTER 2022-04-12 14:30 | Inpatient (IN) | payer OTHER ==
[~2022-04-12] VITALS: Ht 182.9 cm; Wt 114.3 kg
[2022-04-12 14:32] VITALS: BP_SYST 154
--- NOTE | 2022-04-12 14:35 | NUR ---
Patient triaged and placed in waiting room. VSS and patient appears in no acute distress at this time. Accompanied by SELF, awaiting available bed, and MD notified of need for MSE.
[2022-04-12] MEDS ORDERED: AMIO200T66 PO (14:36)
--- NOTE | 2022-04-12 14:36 | NUR ---
Medication reconciliation completed with information provided by PATIENT. Any prior medication reconciliation on file was reviewed and corrected.
[2022-04-12] MEDS ORDERED: IPRATROPIUM/ALBUTEROL SULFATE 3 ML AMPUL.NEB (DUONEB) INH ONE ×2 (15:30→19:00)
[2022-04-12] MEDS ORDERED: ASPIRIN 81 MG TAB.CHEW PO ONE (15:30)
--- NOTE | 2022-04-12 15:31 | NUR ---
Pt bib self from home. CC SOB. Pt has bilateral leg swelling pitting edema +2. Lung sounds clear. denies cough, nausea and vomiting. Pt is resting comfortable semi fowlers position Oxygen saturation 93% notified MD. RAY.
[2022-04-12 16:08] LABS: BASOPHILS # (AUTO) 0.1 K/uL (0.0-0.2); BASOPHILS % (AUTO) 0.7 % (0.0-2.0); EOSINOPHILS # (AUTO) 0.1 K/uL (0.0-0.4); EOSINOPHILS % (AUTO) 1.1 % (0.0-4.0); HEMATOCRIT 41.2 % (36-54); HEMOGLOBIN 13.7 g/dL (14.0-18.0); LYMPHOCYTES # (AUTO) 1.5 K/uL (1.0-5.5); LYMPHOCYTES % (AUTO) 17.1 % (20.5-51.5); MEAN CORPUSCULAR HEMOGLOBIN 29 pg (27-31); MEAN CORPUSCULAR HGB CONC 33 % (32-36); MEAN CORPUSCULAR VOLUME 86 fL (79.0-98.0); MONOCYTES # (AUTO) 0.9 K/uL (0.0-1.0); MONOCYTES % (AUTO) 9.9 % (1.7-9.3); NEUTROPHILS # (AUTO) 6.2 K/uL (1.8-7.7); NEUTROPHILS % (AUTO) 71.2 % (40.0-70.0); PLATELET COUNT (AUTO) 191 K/uL (130-430); RED BLOOD CELL COUNT(AUTO) 4.77 MIL/uL (4.2-6.2); RED CELL DISTRIBUTION WIDTH 15.1 % (9.0-15.0); WHITE BLOOD COUNT (AUTO) 8.7 K/uL (4.8-10.8)
[2022-04-12 16:23] LABS: ANION GAP 5 (5-15); CALCIUM 8.8 mg/dL (8.4-11.0); CHLORIDE 104 mmol/L (98-107); CREATININE 1.34 mg/dL (0.55-1.30); GLUCOSE 99 mg/dL (70-99); POTASSIUM 4.1 mmol/L (3.5-5.1); UREA NITROGEN, BLOOD 27 mg/dL (8-21)
[2022-04-12 16:30] LABS: ALANINE AMINOTRANSFERASE 35 U/L (12-78); ALBUMIN 3.1 g/dL (3.4-4.8); ASPARTATE AMINOTRANSFERASE 21 U/L (10-37); TOTAL BILIRUBIN 0.8 mg/dL (0.0-1.0)
--- NOTE | 2022-04-12 16:55 | NUR ---
Pt ambulates with steady gait to the restroom. Urine collected by ZEKE So and delivered to lab. Pt back in bed with oxygen at 89% gave two literes oxygen via nasal canula. Pt saturation of Oxygen 97% bed down rails up.
[2022-04-12 17:08] LABS: PROTHROMBIN TIME 10.7 SECS (9.5-12.5)
--- NOTE | 2022-04-12 17:20 | NUR ---
# 20 gauge angiocath placed to left ac. Use of asceptic technique. Opsite placed over site. Blood return noted. Blood for lab drawn from site. Flushed with 10 cc of normal saline. No evidence of infiltration noted. Patient tolerated well.
[2022-04-12 17:55] LABS: BILIRUBIN,URINE NEGATIVE (NEGATIVE); BLOOD, URINE NEGATIVE (NEGATIVE); CLARITY/URINE CLEAR (CLEAR); COLOR,URINE YELLOW (YELLOW); GLUCOSE,URINE NEGATIVE (NEGATIVE); KETONES,URINE NEGATIVE (NEGATIVE); LEUKOCYTE ESTERASE ,URINE NEGATIVE (NEGATIVE); NITRITE, URINE NEGATIVE (NEGATIVE); PH,URINE 6.5 (5.0-8.0); PROTEIN URINE NEGATIVE (NEGATIVE); UROBILINOGEN,URINE 0.2 (0.2-1.0)
--- NOTE | 2022-04-12 18:06 | NUR ---
PT BLOOD PRESSURE 176/101 MD NOTIFIED.
[2022-04-12] MEDS ORDERED: AZITHROMYCIN 250 MG TABLET PO ONE (18:30)
[2022-04-12] MEDS ORDERED: cefTRIAXone 1 GM IVPB PREMIX 50 ML IV ONE ×2 (18:30→22:17)
--- NOTE | 2022-04-12 18:47 | NUR ---
Admit bed requested Patient will be admitted to care of . Admitted to TELE unit. Diagnosis RESPIRATORY FAILURE AND PNEUMONIA Inpatient (Yes or No) YES Observation (Yes or No) NO Orientation concerns or request close to nursing station (Yes or No) NO Covid Status NEG On vent or bipap NO Isolation requirements NO Needs a sitter NO From Home (Yes or if No enter name of facility) HOME Requires Dialysis (Yes or No) NO Med Rec Completed (Yes of No) YES
--- NOTE | 2022-04-12 19:31 | NUR ---
RECIEVED PT REPORT FROM SUPRIYA OWEN. PT IS PENDING ADMISSION. PT IS SITTING IN BED, SEMI FOWLERS POSITION. PT ON 1L NC. IV ACCESS ON LEFT HAND. PT VSS. PT SPEAKING FULL SENTENDES. 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 ALL NEEDS MET AT THIS TIME.
--- NOTE | 2022-04-12 21:10 | NUR ---
PT ADMITTED TO TELE 134 B. CONTINUITY OF CARE RECEIVED BY SUPRIYA YUNG. PT PENDING BREATHING TREATMENT. SUPRIYA YUNG AWARE. PT REPORT GIVEN BEDSIDE. ALL QUESTIONS ANSWERED. PT VSS. PT BELONGINGS TAKEN TO ROOM WITH PATIENT. PT PUSHED ON ER GURLINN WITH ACLS PROTOCOL ON TRANSPORT MONITOR.
[2022-04-12 21:15] VITALS: BP_SYST 181
--- NOTE | 2022-04-12 21:15 | NUR ---
Patient arrived on the unit, and was transferred to room 134B. Patient was able to ambulate towards the bed area, without complications. Educated the patient about the unit policies, the plan of care, and the use of call light. Patient understood the teaching and is GCS 15, patient had no questions noted at the moment, and will reinforce if needed throughout the shift.
[2022-04-12] MEDS ORDERED: cloNIDine HCL 0.1 MG TABLET PO PRN (21:45)
[2022-04-12] MEDS ORDERED: BENZOCAINE/MENTHOL 1 EACH LOZENGE MM PRN (22:00)
[2022-04-12] MEDS ORDERED: IPRATROPIUM/ALBUTEROL SULFATE 3 ML AMPUL.NEB (DUONEB) INH PRN (22:00)
[2022-04-12] MEDS ORDERED: ACETAMINOPHEN 325 MG TABLET PO PRN (22:00)
[2022-04-12] MEDS ORDERED: guaiFENesin/DEXTROMETHORPHAN 10 ML UDC PO PRN (22:00)
[2022-04-12] MEDS ORDERED: AZITHROMYCIN 500 MG in NS 250 ML IV SCH (22:00)
[2022-04-12] MEDS ORDERED: FUROSEMIDE 40 MG/4 ML VIAL IVP ONE (22:00)
[2022-04-12] MEDS ORDERED: ZOLPIDEM TARTRATE 5 MG TABLET PO PRN (22:00)
--- NOTE | 2022-04-12 22:06 | NUR ---
Dr. Sharma at bedside, MD is aware of elevated SBP in the 180s, per MD OK to give BP meds now and PRN if BP is within range. MD spoke to patient, and provided medical updates. No additional orders noted at the moment, RT at bedside to perform breathing treatment. Will reinforce if needed throughout the shift.
[2022-04-12 22:17] VITALS: BP_SYST 181
[2022-04-12] MEDS ORDERED: AZITHROMYCIN 500 MG/VIAL (ZITHROMAX) IV ONE (22:18)
[2022-04-12] MEDS: hydrALAZINE HCL 25 MG TABLET PO SCH (22:23)
[2022-04-12] MEDS: METHYLPREDNISOLONE SOD SUCC 40 MG/ML VIAL IVP SCH (22:24)
[2022-04-12] MEDS: CARVEDILOL 25 MG TABLET (COREG) PO SCH (22:24)
[2022-04-12] MEDS: APIXABAN 2.5 MG TABLET PO SCH (22:25)
[2022-04-12] MEDS: cefTRIAXone 1 GM in D5W 50 ML IV SCH (22:26)
--- NOTE | 2022-04-12 23:21 | NUR ---
CONSULTATION PAGED/CALLED Reason for Consultation: CHF Person Who was Notified: GARRETT Consulting Physician: GABE Vehicle Operator Specialty: Ordering Physician: ARLENE
[2022-04-13] VITALS: BP_SYST 174
--- NOTE | 2022-04-13 00:51 | NUR ---
Patient is in bed, and educated about the importance of keeping leads in place. Patient understood the teaching and will reinforce if needed throughout the shift.
[2022-04-13 07:07] LABS: BASOPHILS % (AUTO) 0.1 % (0.0-2.0); EOSINOPHILS % (AUTO) 0.1 % (0.0-4.0); HEMATOCRIT 45.7 % (36-54); HEMOGLOBIN 15.4 g/dL (14.0-18.0); LYMPHOCYTES # (AUTO) 0.9 K/uL (1.0-5.5); LYMPHOCYTES % (AUTO) 11.8 % (20.5-51.5); MEAN CORPUSCULAR HEMOGLOBIN 29 pg (27-31); MEAN CORPUSCULAR HGB CONC 34 % (32-36); MEAN CORPUSCULAR VOLUME 86 fL (79.0-98.0); MONOCYTES # (AUTO) 0.2 K/uL (0.0-1.0); NEUTROPHILS # (AUTO) 6.9 K/uL (1.8-7.7); PLATELET COUNT (AUTO) 205 K/uL (130-430); RED BLOOD CELL COUNT(AUTO) 5.32 MIL/uL (4.2-6.2)
[2022-04-13] MEDS: IPRATROPIUM/ALBUTEROL SULFATE 3 ML AMPUL.NEB (DUONEB) INH SCH ×4 (07:18→20:00)
[2022-04-13 07:45] VITALS: BP_SYST 158
[2022-04-13 08:45] LABS: ALANINE AMINOTRANSFERASE 39 U/L (12-78); ALBUMIN 3.5 g/dL (3.4-4.8); ANION GAP 13 (5-15); ASPARTATE AMINOTRANSFERASE 19 U/L (10-37); CALCIUM 8.9 mg/dL (8.4-11.0); CHLORIDE 101 mmol/L (98-107); CREATININE 1.38 mg/dL (0.55-1.30); GLUCOSE 137 mg/dL (70-99); PHOSPHORUS 3.9 mg/dL (2.7-4.5); POTASSIUM 3.7 mmol/L (3.5-5.1); TOTAL BILIRUBIN 1.1 mg/dL (0.0-1.0); UREA NITROGEN, BLOOD 21 mg/dL (8-21)
[2022-04-13] MEDS ORDERED: AMIODARONE HCL 200 MG TABLET PO SCH (09:00)
[2022-04-13] MEDS: METHYLPREDNISOLONE SOD SUCC 40 MG/ML VIAL IVP SCH ×2 (09:00→20:19)
[2022-04-13] MEDS: lisinopriL 20 MG TABLET PO SCH (09:01)
[2022-04-13] MEDS: AMIODARONE HCL 200 MG TABLET PO SCH ×2 (09:01→20:18)
[2022-04-13] MEDS: LACTOBACILLUS RHAMNOSUS GG 1 CAP CAPSULE PO SCH ×2 (09:02→20:16)
[2022-04-13] MEDS: ATORVASTATIN 10 MG TABLET PO SCH (09:02)
[2022-04-13] MEDS: CARVEDILOL 25 MG TABLET (COREG) PO SCH ×2 (09:02→20:19)
[2022-04-13] MEDS: hydrALAZINE HCL 25 MG TABLET PO SCH ×2 (09:03→20:18)
[2022-04-13] MEDS: APIXABAN 2.5 MG TABLET PO SCH ×2 (09:03→20:17)
[2022-04-13] MEDS: FUROSEMIDE 20 MG/2 ML VIAL IVP SCH ×2 (09:06→16:28)
--- NOTE | 2022-04-13 11:29 | NUR ---
UNABLE TO GIVE SPUTUM SAMPLE. PT STATED HE IS NOT ABLE TO COUGH UP ANY SPUTUM.
[2022-04-13 12:18] LABS: CHOLESTEROL 183 mg/dL (<200); HDL CHOLESTEROL 67 mg/dL (>45); LDL CHOLESTEROL 99 mg/dL (<100); TRIGLYCERIDES 85 mg/dL (30-150)
[2022-04-13] MEDS ORDERED: APIX2.5T PO (12:31)
[2022-04-13 12:42] VITALS: BP_SYST 158
[2022-04-13 16:10] VITALS: BP_SYST 154
[2022-04-13 20:00] VITALS: BP_SYST 150
[2022-04-13] MEDS: cefTRIAXone 1 GM in D5W 50 ML IV SCH (21:12)
[2022-04-14] VITALS: BP_SYST 152
[2022-04-14] MEDS: IPRATROPIUM/ALBUTEROL SULFATE 3 ML AMPUL.NEB (DUONEB) INH SCH ×3 (07:00→15:19)
[2022-04-14 07:25] LABS: BASOPHILS % (AUTO) 0.1 % (0.0-2.0); HEMATOCRIT 43.5 % (36-54); HEMOGLOBIN 14.6 g/dL (14.0-18.0); LYMPHOCYTES # (AUTO) 0.9 K/uL (1.0-5.5); LYMPHOCYTES % (AUTO) 6.2 % (20.5-51.5); MEAN CORPUSCULAR HEMOGLOBIN 29 pg (27-31); MEAN CORPUSCULAR HGB CONC 34 % (32-36); MEAN CORPUSCULAR VOLUME 86 fL (79.0-98.0); MONOCYTES # (AUTO) 0.4 K/uL (0.0-1.0); MONOCYTES % (AUTO) 2.8 % (1.7-9.3); NEUTROPHILS # (AUTO) 13.4 K/uL (1.8-7.7); NEUTROPHILS % (AUTO) 90.9 % (40.0-70.0); PLATELET COUNT (AUTO) 225 K/uL (130-430); RED BLOOD CELL COUNT(AUTO) 5.08 MIL/uL (4.2-6.2); RED CELL DISTRIBUTION WIDTH 15.1 % (9.0-15.0); WHITE BLOOD COUNT (AUTO) 14.7 K/uL (4.8-10.8)
--- NOTE | 2022-04-14 07:32 | NUR ---
OPENING NOTE Pt. is AAOx4 no signs of respiratory distress, no reports of pain. Pt. is currently sitting up at edge of bed and tolerating movement well, fall precautions in place, will continue to monitor.
[2022-04-14 08:30] VITALS: BP_SYST 138
[2022-04-14 08:42] LABS: ANION GAP 8 (5-15); CALCIUM 9.2 mg/dL (8.4-11.0); CHLORIDE 97 mmol/L (98-107); CREATININE 1.42 mg/dL (0.55-1.30); GLUCOSE 151 mg/dL (70-99); POTASSIUM 3.5 mmol/L (3.5-5.1); UREA NITROGEN, BLOOD 31 mg/dL (8-21)
[2022-04-14] MEDS: FUROSEMIDE 20 MG/2 ML VIAL IVP SCH (09:02)
[2022-04-14] MEDS: ATORVASTATIN 10 MG TABLET PO SCH (09:03)
[2022-04-14] MEDS: LACTOBACILLUS RHAMNOSUS GG 1 CAP CAPSULE PO SCH ×2 (09:03→20:24)
[2022-04-14] MEDS: AMIODARONE HCL 200 MG TABLET PO SCH ×2 (09:04→20:23)
[2022-04-14] MEDS: METHYLPREDNISOLONE SOD SUCC 40 MG/ML VIAL IVP SCH (09:04)
[2022-04-14] MEDS: hydrALAZINE HCL 25 MG TABLET PO SCH ×2 (09:04→20:24)
[2022-04-14] MEDS: CARVEDILOL 25 MG TABLET (COREG) PO SCH ×2 (09:04→20:24)
[2022-04-14] MEDS: APIXABAN 2.5 MG TABLET PO SCH ×2 (09:09→20:25)
[2022-04-14] MEDS: lisinopriL 20 MG TABLET PO SCH (09:11)
--- NOTE | 2022-04-14 10:42 | NUR ---
Dr. Sharma at bedside, has seen the patient for today, will be adjusting medications and plan is for discharge home tomorrow
[2022-04-14 14:25] VITALS: BP_SYST 156
--- NOTE | 2022-04-14 14:50 | NUR ---
MIDSHIFT NOTE Pt. is AAOX4 ambulating around the room and sitting up in a chair, on room air O2 sat is 96% no reports of SOB. No reports of pain, educated pt. on CHF precautions, monitor water intake, monitor sodium intake, daily weights, monitoring for edema, pt. verbalized his understanding.
[2022-04-14 18:34] VITALS: BP_SYST 147
--- NOTE | 2022-04-14 19:39 | NUR ---
Full SBAR report given to Talon EPPS, pt. is AAOx4 no reports of pain, no signs of acute distress.
[2022-04-14 20:08] VITALS: BP_SYST 164
[2022-04-14] MEDS: cefTRIAXone 1 GM in D5W 50 ML IV SCH (21:38)
[2022-04-15] MEDS: IPRATROPIUM/ALBUTEROL SULFATE 3 ML AMPUL.NEB (DUONEB) INH SCH ×4 (05:07→15:18)
[2022-04-15 07:15] LABS: BASOPHILS % (AUTO) 0.2 % (0.0-2.0); HEMATOCRIT 46.8 % (36-54); HEMOGLOBIN 15.5 g/dL (14.0-18.0); LYMPHOCYTES # (AUTO) 1.3 K/uL (1.0-5.5); LYMPHOCYTES % (AUTO) 6.3 % (20.5-51.5); MEAN CORPUSCULAR HEMOGLOBIN 29 pg (27-31); MEAN CORPUSCULAR HGB CONC 33 % (32-36); MEAN CORPUSCULAR VOLUME 86 fL (79.0-98.0); MONOCYTES # (AUTO) 1.2 K/uL (0.0-1.0); MONOCYTES % (AUTO) 6.2 % (1.7-9.3); NEUTROPHILS # (AUTO) 17.5 K/uL (1.8-7.7); NEUTROPHILS % (AUTO) 87.3 % (40.0-70.0); PLATELET COUNT (AUTO) 245 K/uL (130-430); RED BLOOD CELL COUNT(AUTO) 5.43 MIL/uL (4.2-6.2); RED CELL DISTRIBUTION WIDTH 15.2 % (9.0-15.0)
[2022-04-15 07:54] VITALS: BP_SYST 164
--- NOTE | 2022-04-15 08:00 | NUR ---
RECEIVED PT FROM NOC SHIFT RN. ASSUMED CARE. PT IS AAOX4. SITTING AT BEDSIDE RECEIVING BREATHING TX, ON R/A. . IV CATH TOLH S/L, FLUSHED, PATENT. PT DENIES PAIN. CALL LIGHT WITHIN REACH.
[2022-04-15 08:04] VITALS: BP_SYST 154
[2022-04-15] MEDS: LACTOBACILLUS RHAMNOSUS GG 1 CAP CAPSULE PO SCH (08:53)
[2022-04-15] MEDS: CARVEDILOL 25 MG TABLET (COREG) PO SCH (08:54)
[2022-04-15] MEDS: AMIODARONE HCL 200 MG TABLET PO SCH (08:55)
[2022-04-15] MEDS: ATORVASTATIN 10 MG TABLET PO SCH (08:55)
[2022-04-15] MEDS: hydrALAZINE HCL 25 MG TABLET PO SCH (08:55)
[2022-04-15] MEDS: lisinopriL 20 MG TABLET PO SCH (08:56)
[2022-04-15] MEDS: APIXABAN 2.5 MG TABLET PO SCH (08:59)
--- NOTE | 2022-04-15 10:00 | NUR ---
SCHEDULED MEDS GIVEN AND TOLERATED WELL. RESP E/U. ON R/A. NO DISTRESS NOTED. DENIES PAIN.
--- NOTE | 2022-04-15 11:00 | NUR ---
DR. JACOBS AT BEDSIDE TO DISCUSS POC.
[2022-04-15 12:00] VITALS: BP_SYST 147
[2022-04-15] MEDS ORDERED: LEVO-62 PO (14:55)
[2022-04-15] MEDS ORDERED: LACT1CAP57 PO (14:55)
[2022-04-15] MEDS ORDERED: IPRA4AER INH (14:57)
[2022-04-15] MEDS ORDERED: AMIO200T66 PO (14:58)
[2022-04-15 15:00] LABS: ANION GAP 14 (5-15); CHLORIDE 101 mmol/L (98-107); GLUCOSE 119 mg/dL (70-99); POTASSIUM 3.7 mmol/L (3.5-5.1)
[2022-04-15 15:01] LABS: ALANINE AMINOTRANSFERASE 32 U/L (12-78); ASPARTATE AMINOTRANSFERASE 27 U/L (10-37); TOTAL BILIRUBIN 0.7 mg/dL (0.0-1.0); UREA NITROGEN, BLOOD 35 mg/dL (8-21)
[2022-04-15 15:02] LABS: ALBUMIN 3.1 g/dL (3.4-4.8)
[2022-04-15 15:03] LABS: CREATININE 1.27 mg/dL (0.55-1.30)
--- NOTE | 2022-04-15 15:30 | NUR ---
DR. JACOBS AT BEDSIDE, INFORMED PT HE WILL DISCHARGE TODAY, MUST FOLLOW WITHIN [address] AJCOBS AT OFFICE. PT AGREED WITH POC.
[2022-04-15 15:44] VITALS: BP_SYST 154
[2022-04-15 15:46] VITALS: BP_SYST 157
--- NOTE | 2022-04-15 16:25 | NUR ---
PT DISCHARGED TO HOME WITH NO DISTRESS. DISCHARGE INSTRUCTIONS SIGNED AND PLACED IN CHART. ALL QUESTIONS AND CONCERNS ADDRESSED. PT INFORMED RX HAS BEEN ELECTRONICALLY SENT TO PT'S INDICATED PHARMACY. IV TO LH REMOVED INTACT. SITE WNL. COVERED WITH CDI OCCLUSIVE DRESSING. PT DENIES PAIN UPON DISCHARGE. PT TAKEN TO LOBBY IN W/C BY GEETA.
== END 2022-04-15 15:00 | disposition home or self-care (01) | DRG 193 ==
LOC: SED 14:30 → STU 18:49
PROVIDERS: ADMIT Internal Medicine; ATTEND Internal Medicine
DX: J18.9 Pneumonia, unspecified organism (principal); I50.43 Acute on chronic combined systolic (congestive) and diastolic (congestive) heart failure; J96.01 Acute respiratory failure with hypoxia; I13.0 Hypertensive heart and chronic kidney disease with heart failure and stage 1 through stage 4 chronic kidney disease, or unspecified chronic kidney disease; J44.1 Chronic obstructive pulmonary disease with (acute) exacerbation; E44.1 Mild protein-calorie malnutrition; I48.92 Unspecified atrial flutter; N18.2 Chronic kidney disease, stage 2 (mild); I48.0 Paroxysmal atrial fibrillation; E78.5 Hyperlipidemia, unspecified; Z20.822 Contact with and (suspected) exposure to COVID-19; I45.10 Unspecified right bundle-branch block; E66.01 Morbid (severe) obesity due to excess calories; Z79.899 Other long term (current) drug therapy; Z68.34 Body mass index [BMI] 34.0-34.9, adult; Z79.01 Long term (current) use of anticoagulants
CPT/HCPCS: 36415; 36600; 71045; 71250-TC; 76376; 76700-TC; 80048; 80053; 80061; 81003; 82803-TC; 83735; 83880; 84100; 84153; 84443; 84484; 85025; 85610-TC; 85730-TC; 93005; 94640; 94760; 99285; G0378; J0456; J0696; J1030; J1940; J7050; J7060; Q0144

== ENCOUNTER 2022-05-25 08:18 | Inpatient (IN) | payer OTHER ==
[~2022-05-25] VITALS: Ht 182.9 cm; Wt 109.8 kg
[~2022-05-25 08:18] MED LIST changes: +IPRA4AER INH; +LACT1CAP57 PO; +LEVO-62 PO
[2022-05-25 08:27] VITALS: BP_SYST 205
[2022-05-25 09:01] LABS: BASOPHILS # (AUTO) 0.1 K/uL (0.0-0.2); BASOPHILS % (AUTO) 0.5 % (0.0-2.0); EOSINOPHILS # (AUTO) 0.1 K/uL (0.0-0.4); EOSINOPHILS % (AUTO) 1.3 % (0.0-4.0); HEMATOCRIT 44.3 % (36-54); HEMOGLOBIN 14.4 g/dL (14.0-18.0); LYMPHOCYTES # (AUTO) 2.2 K/uL (1.0-5.5); LYMPHOCYTES % (AUTO) 20.6 % (20.5-51.5); MEAN CORPUSCULAR HEMOGLOBIN 29 pg (27-31); MEAN CORPUSCULAR HGB CONC 33 % (32-36); MEAN CORPUSCULAR VOLUME 88 fL (79.0-98.0); MONOCYTES % (AUTO) 9.6 % (1.7-9.3); NEUTROPHILS # (AUTO) 7.3 K/uL (1.8-7.7); PLATELET COUNT (AUTO) 275 K/uL (130-430); RED BLOOD CELL COUNT(AUTO) 5.05 MIL/uL (4.2-6.2); RED CELL DISTRIBUTION WIDTH 16.1 % (9.0-15.0); WHITE BLOOD COUNT (AUTO) 10.8 K/uL (4.8-10.8)
[2022-05-25] MEDS ORDERED: methylPREDNISolone SOD SUCC/PF 62.5 MG/ML VIAL IVP ONE (09:15)
[2022-05-25] MEDS ORDERED: IPRATROPIUM/ALBUTEROL SULFATE 3 ML AMPUL.NEB (DUONEB) INH ONE (09:15)
[2022-05-25] MEDS ORDERED: FUROSEMIDE 40 MG/4 ML VIAL IVP ONE (09:15)
[2022-05-25 09:18] LABS: ANION GAP 5 (5-15); CALCIUM 9.3 mg/dL (8.4-11.0); CHLORIDE 107 mmol/L (98-107); CREATININE 1.26 mg/dL (0.55-1.30); GLUCOSE 98 mg/dL (70-99); UREA NITROGEN, BLOOD 28 mg/dL (8-21)
[2022-05-25 09:36] LABS: ALANINE AMINOTRANSFERASE 47 U/L (12-78); ALBUMIN 3.5 g/dL (3.4-4.8); ASPARTATE AMINOTRANSFERASE 29 U/L (10-37); TOTAL BILIRUBIN 0.9 mg/dL (0.0-1.0)
[2022-05-25] MEDS ORDERED: POTASSIUM CHLORIDE 20 MEQ TAB.PRT.SR PO ONE (14:00)
[2022-05-25] MEDS ORDERED: cloNIDine HCL 0.1 MG TABLET PO PRN (14:00)
[2022-05-25] MEDS ORDERED: IPRATROPIUM/ALBUTEROL SULFATE 3 ML AMPUL.NEB (DUONEB) INH PRN (14:00)
[2022-05-25 16:42] VITALS: BP_SYST 189
[2022-05-25] MEDS ORDERED: IPRATROPIUM/ALBUTEROL SULFATE 3 ML AMPUL.NEB (DUONEB) INH SCH (17:00)
[2022-05-25] MEDS ORDERED: FUROSEMIDE 40 MG/4 ML VIAL IVP SCH (17:00)
[2022-05-25] MEDS: FUROSEMIDE 20 MG/2 ML VIAL IVP SCH (17:16)
[2022-05-25] MEDS: AMIODARONE HCL 200 MG TABLET PO SCH (20:47)
[2022-05-25] MEDS: POTASSIUM CHLORIDE 20 MEQ TAB.PRT.SR PO SCH (20:48)
[2022-05-25] MEDS: CARVEDILOL 25 MG TABLET (COREG) PO SCH (20:48)
[2022-05-25 20:49] VITALS: BP_SYST 177
[2022-05-25] MEDS: hydrALAZINE HCL 25 MG TABLET PO SCH (20:49)
[2022-05-25] MEDS ORDERED: APIXABAN 2.5 MG TABLET PO SCH ×2 (21:00)
[2022-05-25] MEDS: DOXYCYCLINE HYCLATE 100 MG CAPSULE PO SCH (22:18)
[2022-05-25] MEDS: METHYLPREDNISOLONE SOD SUCC 40 MG/ML VIAL IVP SCH (22:18)
[2022-05-26 01:12] VITALS: BP_SYST 152
[2022-05-26] MEDS: FUROSEMIDE 20 MG/2 ML VIAL IVP SCH ×2 (06:16→17:38)
[2022-05-26 07:02] LABS: HEMATOCRIT 41.4 % (36-54); HEMOGLOBIN 13.8 g/dL (14.0-18.0); LYMPHOCYTES # (AUTO) 0.8 K/uL (1.0-5.5); LYMPHOCYTES % (AUTO) 10.4 % (20.5-51.5); MEAN CORPUSCULAR HEMOGLOBIN 29 pg (27-31); MEAN CORPUSCULAR HGB CONC 33 % (32-36); MEAN CORPUSCULAR VOLUME 86 fL (79.0-98.0); MONOCYTES # (AUTO) 0.2 K/uL (0.0-1.0); NEUTROPHILS # (AUTO) 6.9 K/uL (1.8-7.7); NEUTROPHILS % (AUTO) 87.6 % (40.0-70.0); PLATELET COUNT (AUTO) 235 K/uL (130-430); RED BLOOD CELL COUNT(AUTO) 4.81 MIL/uL (4.2-6.2); RED CELL DISTRIBUTION WIDTH 16.1 % (9.0-15.0); WHITE BLOOD COUNT (AUTO) 7.9 K/uL (4.8-10.8)
[2022-05-26 07:18] LABS: ALANINE AMINOTRANSFERASE 33 U/L (12-78); ALBUMIN 3.1 g/dL (3.4-4.8); ANION GAP 8 (5-15); ASPARTATE AMINOTRANSFERASE 18 U/L (10-37); CALCIUM 8.3 mg/dL (8.4-11.0); CHLORIDE 106 mmol/L (98-107); CREATININE 1.13 mg/dL (0.55-1.30); GLUCOSE 156 mg/dL (70-99); TOTAL BILIRUBIN 0.8 mg/dL (0.0-1.0); UREA NITROGEN, BLOOD 32 mg/dL (8-21)
[2022-05-26] MEDS: IPRATROPIUM/ALBUTEROL SULFATE 3 ML AMPUL.NEB (DUONEB) INH SCH ×4 (07:25→19:30)
[2022-05-26 08:00] VITALS: BP_SYST 158
[2022-05-26] MEDS: metOLazone 5 MG TABLET PO SCH (09:25)
[2022-05-26] MEDS: ATORVASTATIN 10 MG TABLET PO SCH (09:25)
[2022-05-26] MEDS: POTASSIUM CHLORIDE 20 MEQ TAB.PRT.SR PO SCH ×2 (09:25→21:27)
[2022-05-26] MEDS: DOXYCYCLINE HYCLATE 100 MG CAPSULE PO SCH ×2 (09:25→21:27)
[2022-05-26] MEDS: hydrALAZINE HCL 25 MG TABLET PO SCH ×2 (09:26→21:28)
[2022-05-26] MEDS: lisinopriL 20 MG TABLET PO SCH (09:26)
[2022-05-26] MEDS: CARVEDILOL 25 MG TABLET (COREG) PO SCH ×2 (09:26→21:28)
[2022-05-26] MEDS: AMIODARONE HCL 200 MG TABLET PO SCH ×2 (09:27→21:27)
[2022-05-26] MEDS: METHYLPREDNISOLONE SOD SUCC 40 MG/ML VIAL IVP SCH ×2 (09:27→21:27)
[2022-05-26] MEDS: SPIRONOLACTONE 50 MG TABLET (ALDACTONE) PO SCH (09:30)
[2022-05-26] MEDS: APIXABAN 2.5 MG TABLET PO SCH ×2 (09:39→21:30)
[2022-05-26 12:00] VITALS: BP_SYST 132
[2022-05-26 17:40] VITALS: BP_SYST 151
[2022-05-26 20:00] VITALS: BP_SYST 150
[2022-05-27] VITALS (8 sets, daily range): BP systolic 127–165
[2022-05-27] MEDS: FUROSEMIDE 20 MG/2 ML VIAL IVP SCH (06:23)
[2022-05-27 07:22] LABS: BASOPHILS % (AUTO) 0.1 % (0.0-2.0); HEMATOCRIT 43.7 % (36-54); HEMOGLOBIN 14.4 g/dL (14.0-18.0); LYMPHOCYTES # (AUTO) 0.9 K/uL (1.0-5.5); LYMPHOCYTES % (AUTO) 4.5 % (20.5-51.5); MEAN CORPUSCULAR HEMOGLOBIN 28 pg (27-31); MEAN CORPUSCULAR HGB CONC 33 % (32-36); MEAN CORPUSCULAR VOLUME 86 fL (79.0-98.0); MONOCYTES # (AUTO) 0.6 K/uL (0.0-1.0); MONOCYTES % (AUTO) 3.4 % (1.7-9.3); NEUTROPHILS # (AUTO) 17.5 K/uL (1.8-7.7); PLATELET COUNT (AUTO) 219 K/uL (130-430); RED BLOOD CELL COUNT(AUTO) 5.09 MIL/uL (4.2-6.2); RED CELL DISTRIBUTION WIDTH 15.9 % (9.0-15.0); WHITE BLOOD COUNT (AUTO) 19.1 K/uL (4.8-10.8)
[2022-05-27 07:47] LABS: ANION GAP 10 (5-15); CALCIUM 9.3 mg/dL (8.4-11.0); CHLORIDE 103 mmol/L (98-107); CREATININE 1.36 mg/dL (0.55-1.30); GLUCOSE 150 mg/dL (70-99); UREA NITROGEN, BLOOD 44 mg/dL (8-21)
[2022-05-27] MEDS: IPRATROPIUM/ALBUTEROL SULFATE 3 ML AMPUL.NEB (DUONEB) INH SCH ×4 (07:47→21:46)
[2022-05-27] MEDS: METHYLPREDNISOLONE SOD SUCC 40 MG/ML VIAL IVP SCH (08:32)
[2022-05-27] MEDS: SPIRONOLACTONE 50 MG TABLET (ALDACTONE) PO SCH (08:33)
[2022-05-27] MEDS: metOLazone 5 MG TABLET PO SCH (08:33)
[2022-05-27] MEDS: POTASSIUM CHLORIDE 20 MEQ TAB.PRT.SR PO SCH (08:33)
[2022-05-27] MEDS: ATORVASTATIN 10 MG TABLET PO SCH (08:34)
[2022-05-27] MEDS: DOXYCYCLINE HYCLATE 100 MG CAPSULE PO SCH (08:34)
[2022-05-27] MEDS: lisinopriL 20 MG TABLET PO SCH (08:34)
[2022-05-27] MEDS: CARVEDILOL 25 MG TABLET (COREG) PO SCH ×2 (08:34→21:14)
[2022-05-27] MEDS: hydrALAZINE HCL 25 MG TABLET PO SCH (08:35)
[2022-05-27] MEDS: AMIODARONE HCL 200 MG TABLET PO SCH ×2 (08:35→21:16)
[2022-05-27] MEDS: APIXABAN 2.5 MG TABLET PO SCH ×2 (08:46→21:16)
[2022-05-27] MEDS ORDERED: DOXAZOSIN MESYLATE 2 MG TABLET PO SCH (21:00)
[2022-05-28 06:47] LABS: HEMATOCRIT 43.2 % (36-54); HEMOGLOBIN 14.3 g/dL (14.0-18.0); LYMPHOCYTES # (AUTO) 1.1 K/uL (1.0-5.5); LYMPHOCYTES % (AUTO) 7.2 % (20.5-51.5); MEAN CORPUSCULAR HEMOGLOBIN 29 pg (27-31); MEAN CORPUSCULAR HGB CONC 33 % (32-36); MEAN CORPUSCULAR VOLUME 86 fL (79.0-98.0); MONOCYTES # (AUTO) 1.1 K/uL (0.0-1.0); MONOCYTES % (AUTO) 7.1 % (1.7-9.3); NEUTROPHILS # (AUTO) 12.7 K/uL (1.8-7.7); NEUTROPHILS % (AUTO) 85.7 % (40.0-70.0); PLATELET COUNT (AUTO) 224 K/uL (130-430); WHITE BLOOD COUNT (AUTO) 14.9 K/uL (4.8-10.8)
[2022-05-28 07:00] LABS: ANION GAP 4 (5-15); CALCIUM 9.4 mg/dL (8.4-11.0); CHLORIDE 103 mmol/L (98-107); CREATININE 1.31 mg/dL (0.55-1.30); GLUCOSE 129 mg/dL (70-99); UREA NITROGEN, BLOOD 46 mg/dL (8-21)
[2022-05-28] MEDS: IPRATROPIUM/ALBUTEROL SULFATE 3 ML AMPUL.NEB (DUONEB) INH SCH ×3 (07:17→15:11)
[2022-05-28 08:01] VITALS: BP_SYST 157
[2022-05-28] MEDS: lisinopriL 20 MG TABLET PO SCH (08:23)
[2022-05-28] MEDS: AMIODARONE HCL 200 MG TABLET PO SCH (08:23)
[2022-05-28] MEDS: CARVEDILOL 25 MG TABLET (COREG) PO SCH (08:24)
[2022-05-28] MEDS: APIXABAN 2.5 MG TABLET PO SCH (08:25)
[2022-05-28] MEDS: ATORVASTATIN 10 MG TABLET PO SCH (08:25)
[2022-05-28] MEDS ORDERED: POTASSIUM CHLORIDE 20 MEQ TAB.PRT.SR PO SCH (09:00)
[2022-05-28] MEDS ORDERED: SPIRONOLACTONE 25 MG TABLET (ALDACTONE) PO SCH (09:00)
[2022-05-28] MEDS ORDERED: FUROSEMIDE 40 MG TABLET PO SCH (09:00)
[2022-05-28 12:15] VITALS: BP_SYST 142
[2022-05-28] MEDS ORDERED: SPIR25TA PO (13:52)
[2022-05-28] MEDS ORDERED: LEVO-62 PO (13:52)
[2022-05-28] MEDS ORDERED: Potassium Chloride PO (13:52)
[2022-05-28] MEDS ORDERED: IPRA3AMP9 INH (13:52)
[2022-05-28] MEDS ORDERED: FURO-149 PO (13:52)
[2022-05-28] MEDS ORDERED: POTASSIUM CHLORIDE 20 MEQ TAB.PRT.SR PO ONE (14:00)
[2022-05-28 14:43] VITALS: BP_SYST 142
[2022-05-28 16:00] VITALS: BP_SYST 144
== END 2022-05-28 17:00 | disposition home or self-care (01) | DRG 291 ==
LOC: SED 08:18 → STU 12:14
PROVIDERS: ADMIT Internal Medicine; ATTEND Internal Medicine
DX: I11.0 Hypertensive heart disease with heart failure (principal); I50.43 Acute on chronic combined systolic (congestive) and diastolic (congestive) heart failure; J96.01 Acute respiratory failure with hypoxia; J18.9 Pneumonia, unspecified organism; J44.1 Chronic obstructive pulmonary disease with (acute) exacerbation; I48.20 Chronic atrial fibrillation, unspecified; I48.92 Unspecified atrial flutter; J44.0 Chronic obstructive pulmonary disease with (acute) lower respiratory infection; I42.0 Dilated cardiomyopathy; Z20.822 Contact with and (suspected) exposure to COVID-19; E78.5 Hyperlipidemia, unspecified; I45.10 Unspecified right bundle-branch block; E66.01 Morbid (severe) obesity due to excess calories; Z79.01 Long term (current) use of anticoagulants; Z79.899 Other long term (current) drug therapy; Z87.891 Personal history of nicotine dependence; Z68.32 Body mass index [BMI] 32.0-32.9, adult
CPT/HCPCS: 36415; 71045; 80048; 80053; 83735; 83880; 84484; 85025; 93005; 94640; 94760; 99285; G0378; J1030; J1940; J1956; J2930

== ENCOUNTER 2022-11-22 08:23 | Outpatient (CLI) | payer OTHER ==
[~2022-11-22 08:23] MED LIST changes: +FURO-149 PO; +IPRA3AMP9 INH; -LACT1CAP57 PO; +Potassium Chloride PO; +SPIR25TA PO
[2022-11-22 09:02] LABS: BASOPHILS % (AUTO) 0.5 % (0.0-2.0); EOSINOPHILS # (AUTO) 0.2 K/uL (0.0-0.4); EOSINOPHILS % (AUTO) 2.2 % (0.0-4.0); HEMATOCRIT 47.5 % (36-54); LYMPHOCYTES # (AUTO) 2.4 K/uL (1.0-5.5); LYMPHOCYTES % (AUTO) 27.4 % (20.5-51.5); MEAN CORPUSCULAR HEMOGLOBIN 30 pg (27-31); MEAN CORPUSCULAR HGB CONC 34 % (32-36); MEAN CORPUSCULAR VOLUME 90 fL (79.0-98.0); MONOCYTES # (AUTO) 0.9 K/uL (0.0-1.0); NEUTROPHILS # (AUTO) 5.2 K/uL (1.8-7.7); NEUTROPHILS % (AUTO) 59.9 % (40.0-70.0); PLATELET COUNT (AUTO) 210 K/uL (130-430); RED CELL DISTRIBUTION WIDTH 15.3 % (9.0-15.0); WHITE BLOOD COUNT (AUTO) 8.7 K/uL (4.8-10.8)
[2022-11-22 09:29] LABS: ALANINE AMINOTRANSFERASE 33 U/L (12-78); ALBUMIN 3.8 g/dL (3.4-4.8); ANION GAP 9 (5-15); ASPARTATE AMINOTRANSFERASE 22 U/L (10-37); CALCIUM 9.1 mg/dL (8.4-11.0); CHLORIDE 105 mmol/L (98-107); CHOLESTEROL 175 mg/dL (<200); CREATININE 1.37 mg/dL (0.55-1.30); GLUCOSE 106 mg/dL (70-99); HDL CHOLESTEROL 63 mg/dL (>45); THYROID STIMULATING HORMONE 1.33 uIu/mL (0.34-4.82); TOTAL BILIRUBIN 0.9 mg/dL (0.0-1.0); TRIGLYCERIDES 132 mg/dL (30-150); UREA NITROGEN, BLOOD 26 mg/dL (8-21)
[2022-11-23 13:06] LABS: PROSTATE SPECIFIC AG 1.3 ng/mL (0.0-4.0)
== END 2022-11-22 20:16 | disposition home or self-care (01) ==
LOC: SLB 08:23
PROVIDERS: ATTEND Internal Medicine
DX: I11.0 Hypertensive heart disease with heart failure (principal); I50.30 Unspecified diastolic (congestive) heart failure; R73.9 Hyperglycemia, unspecified; I48.0 Paroxysmal atrial fibrillation; N40.1 Benign prostatic hyperplasia with lower urinary tract symptoms; Z79.899 Other long term (current) drug therapy
CPT/HCPCS: 36415; 80053; 80061; 82306; 82607; 83037; 83880; 84153; 84443; 85025

== ENCOUNTER 2023-08-21 08:33 | Outpatient (CLI) | payer OTHER ==
[2023-08-21 08:56] LABS: BASOPHILS % (AUTO) 0.3 % (0.0-2.0); EOSINOPHILS # (AUTO) 0.3 K/uL (0.0-0.4); EOSINOPHILS % (AUTO) 2.5 % (0.0-4.0); HEMATOCRIT 48.8 % (36-54); HEMOGLOBIN 16.5 g/dL (14.0-18.0); LYMPHOCYTES # (AUTO) 2.6 K/uL (1.0-5.5); LYMPHOCYTES % (AUTO) 25.7 % (20.5-51.5); MEAN CORPUSCULAR HEMOGLOBIN 31 pg (27-31); MEAN CORPUSCULAR HGB CONC 34 % (32-36); MEAN CORPUSCULAR VOLUME 93 fL (79.0-98.0); MONOCYTES # (AUTO) 1.1 K/uL (0.0-1.0); MONOCYTES % (AUTO) 11.1 % (1.7-9.3); NEUTROPHILS # (AUTO) 6.1 K/uL (1.8-7.7); NEUTROPHILS % (AUTO) 60.4 % (40.0-70.0); PLATELET COUNT (AUTO) 210 K/uL (130-430); RED BLOOD CELL COUNT(AUTO) 5.28 MIL/uL (4.2-6.2); RED CELL DISTRIBUTION WIDTH 14.3 % (9.0-15.0); WHITE BLOOD COUNT (AUTO) 10.1 K/uL (4.8-10.8)
[2023-08-21 09:06] LABS: HEMOGLOBIN A1C 5.71 % (<5.7)
[2023-08-21 09:40] LABS: ALANINE AMINOTRANSFERASE 28 U/L (12-78); ALBUMIN 3.7 g/dL (3.4-4.8); ANION GAP 7 (5-15); ASPARTATE AMINOTRANSFERASE 19 U/L (10-37); CALCIUM 9.7 mg/dL (8.4-11.0); CARBON DIOXIDE 29 mmol/L (23-29); CHLORIDE 105 mmol/L (98-107); CHOLESTEROL 165 mg/dL (<200); GLUCOSE 102 mg/dL (74-106); HDL CHOLESTEROL 56 mg/dL (>45); POTASSIUM 4.5 mmol/L (3.5-5.1); SODIUM SERUM 141 mmol/L (136-145); THYROID STIMULATING HORMONE 1.19 uIu/mL (0.34-4.82); TOTAL BILIRUBIN 0.9 mg/dL (0.0-1.0); TOTAL PROTEIN, SERUM 7.8 g/dL (6.4-8.3); TRIGLYCERIDES 142 mg/dL (30-150); UREA NITROGEN, BLOOD 24 mg/dL (8-21)
== END 2023-08-21 17:07 | disposition home or self-care (01) ==
LOC: SLB 08:33
PROVIDERS: ATTEND Internal Medicine
DX: I10 Essential (primary) hypertension (principal); E78.5 Hyperlipidemia, unspecified; E55.9 Vitamin D deficiency, unspecified; E56.9 Vitamin deficiency, unspecified; E03.9 Hypothyroidism, unspecified; R73.9 Hyperglycemia, unspecified
CPT/HCPCS: 36415; 80053; 80061; 83037; 83735; 84443; 85025

== ENCOUNTER 2023-12-25 08:21 | Outpatient (CLI) | payer OTHER ==
[~2023-12-25 08:21] MED LIST changes: -HYDR-4038 PO; +HYDR25TA86 PO
[2023-12-25 08:45] LABS: BASOPHILS # (AUTO) 0.1 K/uL (0.0-0.2); BASOPHILS % (AUTO) 0.5 % (0.0-2.0); EOSINOPHILS # (AUTO) 0.2 K/uL (0.0-0.4); EOSINOPHILS % (AUTO) 1.7 % (0.0-4.0); HEMATOCRIT 50.1 % (36-54); HEMOGLOBIN 16.7 g/dL (14.0-18.0); LYMPHOCYTES # (AUTO) 2.5 K/uL (1.0-5.5); LYMPHOCYTES % (AUTO) 24.8 % (20.5-51.5); MEAN CORPUSCULAR HEMOGLOBIN 31 pg (27-31); MEAN CORPUSCULAR HGB CONC 33 % (32-36); MEAN CORPUSCULAR VOLUME 94 fL (79.0-98.0); MONOCYTES # (AUTO) 1.1 K/uL (0.0-1.0); MONOCYTES % (AUTO) 10.8 % (1.7-9.3); NEUTROPHILS # (AUTO) 6.2 K/uL (1.8-7.7); NEUTROPHILS % (AUTO) 62.2 % (40.0-70.0); PLATELET COUNT (AUTO) 189 K/uL (130-430); RED BLOOD CELL COUNT(AUTO) 5.33 MIL/uL (4.2-6.2); RED CELL DISTRIBUTION WIDTH 14.6 % (9.0-15.0); WHITE BLOOD COUNT (AUTO) 9.9 K/uL (4.8-10.8)
[2023-12-25 09:42] LABS: ANION GAP 6 (5-15); CALCIUM 9.4 mg/dL (8.4-11.0); CARBON DIOXIDE 28 mmol/L (23-29); CHLORIDE 109 mmol/L (98-107); CREATININE 1.44 mg/dL (0.55-1.30); GLUCOSE 87 mg/dL (74-106); POTASSIUM 4.7 mmol/L (3.5-5.1); SODIUM SERUM 143 mmol/L (136-145); UREA NITROGEN, BLOOD 28 mg/dL (8-21)
[2023-12-25 09:43] LABS: ALANINE AMINOTRANSFERASE 28 U/L (12-78); ALBUMIN 3.5 g/dL (3.4-4.8); ASPARTATE AMINOTRANSFERASE 19 U/L (10-37); TOTAL BILIRUBIN 0.6 mg/dL (0.0-1.0); TOTAL PROTEIN, SERUM 7.6 g/dL (6.4-8.3)
== END 2023-12-25 18:46 | disposition home or self-care (01) ==
LOC: SLB 08:21
PROVIDERS: ATTEND Internal Medicine
DX: I10 Essential (primary) hypertension (principal); I48.0 Paroxysmal atrial fibrillation; E55.9 Vitamin D deficiency, unspecified; N40.1 Benign prostatic hyperplasia with lower urinary tract symptoms
CPT/HCPCS: 36415; 80053; 83735; 84153; 85025

== ENCOUNTER 2024-04-29 08:41 | Outpatient (CLI) | payer OTHER ==
[~2024-04-29 08:41] MED LIST changes: +ATOR-449 PO; -LIP10 PO
[2024-04-29 09:32] LABS: ANION GAP 9 (5-15); CALCIUM 9.9 mg/dL (8.4-11.0); CARBON DIOXIDE 28 mmol/L (23-29); CHLORIDE 105 mmol/L (98-107); CREATININE 1.58 mg/dL (0.55-1.30); GLUCOSE 93 mg/dL (74-106); SODIUM SERUM 142 mmol/L (136-145); UREA NITROGEN, BLOOD 29 mg/dL (8-21)
== END 2024-04-29 18:51 | disposition home or self-care (01) ==
LOC: SLB 08:41
PROVIDERS: ATTEND Internal Medicine
DX: I11.0 Hypertensive heart disease with heart failure (principal); I50.30 Unspecified diastolic (congestive) heart failure
CPT/HCPCS: 36415; 80048; 83880